=== PATIENT | female | born 1975 | race Caucasian/White ===

== ENCOUNTER → 2016-12-25 10:02 | Outpatient (CLI) | payer BC, MEDICAID, SELFPAY ==
[2016-12-25 14:46] LABS: Hematocrit 39.3 % (37-47); Hemoglobin 13.6 g/dl (12.0-15.0); Mean Corp Hgb Conc 34.6 g/gl (32-36); Mean Corpuscular Hgb 31.3 pg (27.0-32.0); Mean Corpuscular Volume 90.6 fL (81-99); Mean Platelet Vol. 10.1 fl (6.2-12.0); Platelet Count 251 K/mm3 (150-450); RBC Distribution Width CV 13.3 % (11.6-14.6); RBC Distribution Width SD 43.4 fl (35.1-43.9); Red Blood Count 4.34 M/mm3 (4.2-5.4); White Blood Count 10.2 K/mm3 (4.4-11.0)
[2016-12-25 14:49] LABS: Scan Indicated on CBC? Y/N NO
[2016-12-25 15:08] LABS: Pregnancy, Serum, hCG Quali. NEGATIVE Negative (0-9 Nonpreg)
[2016-12-25 15:12] LABS: Thyroid Stim Hormone (TSH) 0.27 uIU/mL (0.358-3.74)
== END ==
PROVIDERS: Visit Provider Obstetrics & Gynecology
DX: Z01.818 Encounter for other preprocedural examination (principal); E07.9 Disorder of thyroid, unspecified
CPT/HCPCS: 36415; 84443; 84703; 85027; 86850; 86900

== ENCOUNTER 2017-07-24 11:55 | Day surgery (SDC) | payer BC, MEDICAID, SELFPAY ==
--- NOTE | 2017-07-24 07:04 | PCM.DC.ORTHO ---
Discharge Activity: Return to Normal Activity, May not drive while taking narcotic pain medications., May Shower, Use Walker, Use Crutches May shower in (days): 2 May resume sexual activity in: No Restrictions Ice area for (Minutes): 20 - Use Polar Care as needed Weight Bearing Status: Weight bearing as tolerated Additional Activity Instructions:: Flex and extend knee ad tiera. Encourage early weightbearing and range of motion. Call your doctor if your incision/area has: Continuous Slow Oozing, Sudden Increased Bleeding, Increased Pain/ Swelling, Increased Redness, Foul Smelling Discharge, Swelling at the incision site Call your doctor if you observe: Fever of 101 or Higher, Coldness, Increased Pain, Numbness or Tingling, Change in Color, Inability to urinate, Inability to have a bowel movement, Using more than one pad per hour, Shortness of breath, Dizziness, Fainting spells, Swelling in the ankles, Chest pain, Prolonged hiccoughing, Increased palpitations (irregular heartbeat), Calf discomfort, Uncontrolled pain Suture Line Care: Avoid Pulling/Pushing, Avoid Pinching/Bending Change Dressing in (Days):: 2 Remove Dressing in (days):: 2 Cleanse incision/area with: Soap & Water Additional Dressing/Incision Instructions:: Move dressing postop day 2. May shower. Do not submerge wound. Replace Toro wrap for gentle compression upon completion. Allergies/Adverse Reactions: Allergies erythromycin base [Erythromycin Base] Adverse Reaction (Verified 07/17/17 08:41) Abd cramps/diarrhea Medications to take at Discharge Thyroid [Freeborn Thyroid] 15 mg PO QODAY 09/03/16 Ascorbic Acid [Vitamin C] 500 mg PO DAILY@0800 12/21/16 Intergal Collagen 1 pack PO DAILY 02/22/17 hydrochlorothiazide 25 mg tablet 25 mg PO QDAY #90 tab 06/22/17 Amlodipine Besylate [Norvasc] 5 mg PO LUNCH 07/17/17 Docusate Sodium [Colace] 100 mg PO BID PRN PRN #10 cap 07/24/17 Oxycodone HCl/Acetaminophen [Percocet 5/325] 1 - 2 tablet PO Q4H PRN PRN #60 tablet 07/24/17 ProMETHAzine [Phenergan] 25 mg PO Q4H PRN PRN #10 tab 07/24/17 The following prescriptions were given: Oxycodone HCl/Acetaminophen [Percocet 5/325] 1 - 2 tablet PO Q4H PRN PRN #60 tablet PRN Reason: Pain ProMETHAzine [Phenergan] 25 mg PO Q4H PRN PRN #10 tab PRN Reason: Nausea Docusate Sodium [Colace] 100 mg PO BID PRN PRN #10 cap PRN Reason: Constipation Primary Care Physician: Palma Betancourt MD [Primary Care Provider] - Please Follow Up With: Cleveland Rivera DO When: call [facility] for appt for 2 weeks Proposed Discharge Date: 07/24/17
[2017-07-24 12:13] VITALS: BP 169/92; PULSE 114; RESP 18; TEMP 36.6; O2SAT 98; BMI 44.4
--- NOTE | 2017-07-24 13:36 | OP.PN_ITS ---
Immediate Post-Op Note Date of Procedure: 07/24/17 Primary Surgeon/Physician: Cleveland Rivera DO communication signals intelligence: none Pre-Operative Diagnosis: Left knee internal derangement, meniscus tear, stress reaction to the distal femur and proximal tibia Post-Operative Diagnosis: Same as above Surgery/Procedure Performed:: Left knee scope, partial synovectomy, micro internal fixation of the femur, chondroplasty of the patella. Description of Surgical Findings:: See dictation Estimated Blood Loss: 10 Specimen's removed: None ASA Class: ASA1 Normal Healthy Patient - Admit VTE Documentation VTE Present on Admission: No VTE Mechan Device Prophylaxis: SCD's VTE Pharm Prophylaxis ordered?: No Reason prophylaxis not ordered:: Treatment Not Indicated
[2017-07-24] MEDS: Cefazolin 2 GM in 0.9% Normal Saline 100 ML IV (13:40)
--- NOTE | 2017-07-24 13:55 | RAD_ITS ---
STUDY: X-RAY - LEFT KNEE REASON FOR EXAM: Female, 41 years old. Left knee surgery. TECHNIQUE: 3 view(s) of the knee. Intraoperative fluoroscopy COMPARISON: None. FINDINGS: 3 views of the left knee via intraoperative fluoroscopy demonstrates postsurgical change of the medial compartment without definitive hardware failure or loosening. Please see surgical report for full details RAD/Knee 1 or 2 Views IMPRESSION: As above Electronically Signed: Ernie Kumar DO at 15:12 EST Tel , Service support ,
[2017-07-24] MEDS: Bupivacaine 0.25% 30 ML Vial (14:45)
[2017-07-24 15:09] VITALS: BP 152/85; BP 169/92; PULSE 122; RESP 18; TEMP 36.5; O2SAT 93
[2017-07-24 15:15] VITALS: BP 147/84; BP 169/92; PULSE 108; RESP 16; O2SAT 92
[2017-07-24 15:30] VITALS: BP 143/90; BP 169/92; PULSE 107; RESP 16; O2SAT 93
[2017-07-24 15:41] VITALS: BP 157/96; BP 169/92; PULSE 103; RESP 16; TEMP 36.7; O2SAT 94
[2017-07-24] MEDS: oxyCODONE 5 MG Tablet 10 MG PO (16:16)
[2017-07-24 16:55] VITALS: BP 169/92
--- NOTE | 2017-07-25 08:05 | OP.PCM_ITS ---
Report of Operation Date of Procedure: 07/24/17 Pre-Operative Diagnosis: Left knee internal derangement, meniscus tear, stress reaction to the distal femur and proximal tibia Post-Operative Diagnosis: Same as above Surgery/Procedure Performed:: Left knee scope, partial synovectomy, micro internal fixation of the femur, chondroplasty of the patella. Description of Surgical Findings:: 41-year-old female with recalcitrant left knee pain that failed nonoperative management to include NSAIDs and modifications physical therapy and injections. Patient had an MRI that showed her to have possible tear to the posterior horn of the medial meniscus with thinning of the cartilage and subchondral edema to the medial femoral condyle and slightly across the medial tibial plateau. Patient showed small amount of extrusion of meniscus. I did not appreciate any formal root tear. Patient showed chondromalacia of the patellofemoral joint and a large effusion. Having failed conservative measures my recommendation was for a diagnostic knee scope possible meniscus repair versus debridement micro internal fixation of the medial femoral condyle and possible medial tibial plateau chondroplasty as warranted and synovectomy as needed secondary to a large recurrent effusion. Patient agreed to the aforementioned procedure. She has been in the holding area where the left lower extremity was marked and identified by the with surgeon. Patient was taken the operating room in satisfactory condition with somewhat to place to identify patient operative procedure and limb. Patient received 2 g of Ancef. She had a well-placed tourniquet left proximal thigh she was then prepped and draped in usual fashion. Left lower extremity was elevated Esmarch used for exsanguination and tourniquet was increased to 250 mmHg for roughly 47 minutes. Anterolateral portal was established and we entered the suprasellar pouch with a small return effusion. Superior lateral outflow portal was established. Diagnostic scope to the patient have really marked synovitis globally around the knee. 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 Her posterior lateral corner showed no obvious loose bodies with some mild synovitis as expected. We then moved in the medial side patient had a large medial shelf plical formation and synovial flap across the trochlea. We slid underneath that and performed a anteromedial portal. I then performed a partial to subtotal synovectomy around the joint using mechanical shaver and vapor to help control any excess bleeding. We performed a chondroplasty of the central ridge of the patella to a stable rim. Overall dimensions was roughly 1 cm medial to lateral 1.5 cm from superior to inferior pole. Evaluation the medial compartment showed the patient really have a flattened compressed area which is some of the area with the subchondral edema was identified in the medial femoral condyle. She also had marked areas of grade 2 to grade III chondromalacia at about 45-50? of knee flexion. The medial tibial plateau grade showed grade II chondromalacia. The overall continuity the meniscus was preserved. I cannot appreciate any instability to the meniscus at the root or identify any anne tear patterns with probing. The meniscus was that point time left alone. Small chondroplasty was performed to the loose areas of the cartilage to the medial femoral condyle. ACL was otherwise within normal limits. However the patient was showing early stenotic changes with osteophytic changes around the notch of roughly 2 mm. No obvious extension loss was appreciated this point. Lateral compartment showed grade II chondromalacia of the tibial plateau with the meniscus was pristine. The lateral femoral condyle showed no chondromalacia changes through full range of motion. At that point time using C-arm visualization a trocar was entered from the medial aspect of the femoral condyle found to be in close proximity to the area of compression across the condyle with subchondral edema was identified. Trocar was then introduced again confirming appropriate position AP and lateral planes with C-arm. We then introduced roughly 2 cc of calcium phosphate cement into the condyle with direct observation the trocar to be sure there was not extrusion of the material. This was allowed to set up accordingly for roughly 8 minutes at time. Trocar was then removed. The joint was run one additional time to ensure there was not any loose fragments. We had none. At that point time scope was retracted and the portal sites are closed with 3-0 nylon. Patient was injected with 30 cc of 0.25% Marcaine without epinephrine intra-articularly and around the portal sites. She was then placed a compressive dressing to include Xeroform 4 x 4's Kerlix roll ABD and Toro wrap. I was scrubbed and available time during our procedure. We had no drains or comp occasions. Implants included the calcium phosphate cement from [employer]. Any issues please contact me. financial aid officer: none Type of Anesthesia:: General Specimen's removed: None Estimated Blood Loss (mL): 10 Grafts/Implants Used: Calcium phosphate cement - Complications None - Admit VTE Documentation VTE Present on Admission: No VTE Mechan Device Prophylaxis: SCD's, Knee High MARCELLUS Hose VTE Pharm Prophylaxis ordered?: No Reason prophylaxis not ordered:: Treatment Not Indicated
== END 2017-07-24 16:57 | disposition home or self-care (01) ==
LOC: SDC 11:56 → AC 11:57
PROVIDERS: Family Provider Internal Medicine; PCP Internal Medicine; Visit Provider Orthopaedic Surgery
PROC: 3E0U3GB Introduction of Recombinant Bone Morphogenetic Protein into Joints, Percutaneous Approach (ICD-10-PCS; CPT 0707T; principal; 2017-07-24 13:35)
DX: M84.362A Stress fracture, left tibia, initial encounter for fracture (principal); M84.352A Stress fracture, left femur, initial encounter for fracture; M22.42 Chondromalacia patellae, left knee; X58.XXXA Exposure to other specified factors, initial encounter; Y93.9 Activity, unspecified; Y92.9 Unspecified place or not applicable; I10 Essential (primary) hypertension; Z79.899 Other long term (current) drug therapy; R00.0 Tachycardia, unspecified; E03.9 Hypothyroidism, unspecified
CPT/HCPCS: 01400; 29855; 29877; 73560; 76000; J7120; J2405

== ENCOUNTER → 2017-09-04 14:49 | Outpatient (CLI) | payer BC, MEDICAID, SELFPAY ==
[2017-09-04 19:52] LABS: T4 Free Direct 0.94 ng/dL (0.76-1.46)
== END ==
PROVIDERS: Family Provider Internal Medicine; PCP Internal Medicine; Visit Provider Nurse Practitioner Family
DX: E03.9 Hypothyroidism, unspecified (principal)
CPT/HCPCS: 36415; 84439; 84443

== ENCOUNTER → 2017-09-21 15:49 | Outpatient (CLI) | payer BC, MEDICAID, SELFPAY ==
[2017-09-21 18:09] LABS: ALB/GLOB Ratio 1.1 RATIO (0.9-2.4); AST(SGOT) 66 U/L (15-37); Alanine Aminotransfer ALT/SGPT 79 U/L (13-56); Alkaline Phosphatase 97 U/L (45-117); Anion Gap 11 (5-15); BUN 7 mg/dL (7-18); BUN/Creat Ratio 9.2 RATIO (10-20); Calcium,Total 8.6 mg/dL (8.5-10.1); Chloride 96 mmol/L (98-107); Creatinine, Serum 0.76 mg/dL (0.55-1.02); EST Glomerular Filtration Rate 88 mL/min (>60); Est Glom Filt Rate - Afr Amer 107 mL/min (>60); Globulin 3.5 g/dL (2.2-4.2); Glucose 324 mg/dL (74-106); Potassium 3.5 mmol/L (3.5-5.1); Protein, Total 7.5 g/dL (6.4-8.2); Sodium Level 133 mmol/L (136-145)
[2017-09-21 18:11] LABS: Vitamin D,25 Hydroxy 12.6 ng/mL (29.95-100.01)
[2017-09-21 18:34] LABS: Absolute Lymphocyte Count 2.18 X10^3/ul (0.83-4.51); Absolute Neutrophil Count 5.1 X10^3/uL (2.0-7.7); Basophil# 0.03 X10^3/uL; Basophil% 0.4 % (0-1); Eosinophil# 0.06 X10^3/uL; Eosinophils% 0.8 % (0-5); Hematocrit 43.6 % (37-47); Hemoglobin 15.2 g/dl (12.0-15.0); Lymphocyte # 2.18 X10^3/ul (4.0); Lymphocyte % 27.7 % (19-41); Mean Corp Hgb Conc 34.9 g/gl (32-36); Mean Corpuscular Hgb 30.8 pg (27.0-32.0); Mean Corpuscular Volume 88.4 fL (81-99); Mean Platelet Vol. 10.9 fl (6.2-12.0); Monocyte% 6.4 % (0-10); Neutrophil # 5.09 X10^3/uL (2.7-7.7); Neutrophil % 64.6 % (47-70); Platelet Count 263 K/mm3 (150-450); RBC Distribution Width CV 12.6 % (11.6-14.6); RBC Distribution Width SD 40.2 fl (35.1-43.9); Red Blood Count 4.93 M/mm3 (4.2-5.4); White Blood Count 7.9 K/mm3 (4.4-11.0)
[2017-09-21 18:36] LABS: POSITIVE COUNT NO; POSITIVE DIFFERENTIAL NO; POSITIVE MORPHOLOGY NO
[2017-09-21 18:38] LABS: Hemoglobin A1c 9.8 % (4.2-6.3)
== END ==
PROVIDERS: Family Provider Internal Medicine; PCP Internal Medicine; Visit Provider Internal Medicine
DX: E11.9 Type 2 diabetes mellitus without complications (principal); E03.9 Hypothyroidism, unspecified
CPT/HCPCS: 36415; 80053; 82306; 83036; 85025

== ENCOUNTER 2017-10-04 14:00 | Outpatient (RCR) | payer BC, MEDICAID, SELFPAY ==
--- NOTE | 2017-08-09 15:29 | HP.PTEVAL_ITS ---
Patient's Visit Information DELFINA BARBOSA is a 41 year old F referred to Physical Therapy by Cleveland Rivera DO DR.MTFRED with a diagnosis of LEFT KNEE SCOPE ,MICROINTERNAL FUNCTION ,C. Date of Evaluation: 08/09/17 Physical Therapist: John Paul Edgar PT, - Visit Plan Frequency: 2-3x /Week Duration: 6-12WEEKS Plan: intilally ROM ,PRE 'S QUADS/HAMS/HIPOPEN/CLOSED CHAIN PROGRESS SLOWLY - AVOID KNEE EXT,GAIT ,AND PROPRIOCEPTION. MODALITIES -/CPVASO FOR EDEMA - Subjective Subjective: This patient presents to physical thwerapy with left knee scope , microinternal fixation fixation [facility] [place]. Patient has had knee since last year with pain and edema. Seen Dr Rivera recommended PT ,got better. Then pain return with waorking at home remodling ,causing swellinf,stifffness. MRI showed meniscus tear ,bone weakness. Thus underwent arthroscpoic ,patial synovectomy , microinternal fixation of femus,chondroplasty of patella on Jul 24 at [facility] as outpatient. Patient is WBAT with crutches.Patient unable to squat,kneeling, stairs one step at time,extended standing. Patient has iceman at home for edema. Patient has edema worse as day goes on. Patient sleeping okay . Denies parathesia tingling.Patient knee surgery affects quality of life and unable housework tasks. SOCIAL: . 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 NEURO: intact reflexes normal , denies parathesia. GAIT: ambulates with crutches with WBAT with slight decrease stance with swing phase. reciprocal pattern. PROPRIOCEPTION: poor left. STAIRS: asend/descend 4 steps on step at time. EDEMA: joint line 54 cm. AROM : left knee flexion 20 -85 degrees. MMT: QUADS 3+/5,HAMS 4-/5,HIP FLEXION 4-/5,HIP EXT/ABD 3+/5,ANKLE 4/5. FLEXABLITY: hams min loss - Goals Goal 1:: Independant with HEP Goal Time Frame: 6-8 Weeks Goal 2:: Ambulate with improve gait reciprocal pattern normal janette swing phase Goal Time Frame: 6-8 Weeks Goal 3:: Patient improve AROM supine knee flexion 5-120 degrees to improve stairs Goal Time Frame: 6-8 Weeks Goal 4:: Patient increase strength of quads/hams 4/5 to improve function. Goal Time Frame: 6-8 Weeks Goal 5:: Patient to improve ablity with ADL'S and housework tasks with min limiations Goal Time Frame: 6-8 Weeks Goal 6:: Patient able to ascend/descend 12 steps with rail alternate Goal Time Frame: 6-8 Weeks - Rehabilitation Potential Physical Therapy Diagnosis: This patient underwent s/p left scope , microinternal fixation ,MFC. Patient has decrease ROM ,strength impairs gait, stairs and ADLS /housework tasks austin carmona from skilled PT Rehabilitation Potential: Good - Anticipated Interventions Patient/Client Instruction: Educate patient on: Condition, Plan of Care For the Purpose of:: To decrease pain, To increase ROM, To improve muscle performance and motor function, To improve ability to perform ADL's, To increase tolerance to activity/condition/position, To improve ability of physical actions for home/community/work/leisure, To improve health of tissue, To decrease soft tissue restriction, To increase flexibility/ROM, To reduce risk of recurrence, To improve health and function, To improve ability to perform tasks related to life management Therapeutic Exercise to Include: Strength training, Balance training, Flexibilty training, Passive ROM, Active ROM Comment: QUADS/HAMS -AVOID KNEE EXT For the Purpose of:: To decrease pain, To increase ROM, To improve muscle performance and motor function, To improve ability to perform ADL's, To increase tolerance to activity/condition/position, To improve performance and independence with ADL's, To improve ability of physical actions for home/ community/work/leisure, To improve gait and locomotor functions, To improve health of tissue, To decrease soft tissue restriction, To increase flexibility/ ROM, To improve ability to perform tasks related to life management IF ES: Yes Cryotherapy (ice pack, ice massage): Yes Thermo therapy (hot pack): Yes Ultrasound (thermal/non thermal): Yes Vasopneumatic device: Yes For the Purpose of:: To decrease pain, To decrease swelling/inflammation, To increase ROM, To improve nutrient delivery to tissue, To increase oxygenation perfusion, To improve health of tissue, To decrease soft tissue restriction, To increase flexibility/ROM Thank you for the opportunity to evaluate your patient. For Medicare and Medicare HMO plans, please review the plan of care and approve it. It will need to be FAXED BACK to us at [phone] for Medicare purposes. Please let me know if there are questions or concerns regarding this plan of care. Physician Signature: Date:
--- NOTE | 2017-10-04 14:24 | HP.PTDCSUM ---
HP - PT D/C Summary It has been my pleasure to treat DELFINA BARBOSA under orders from Cleveland Rivera DO, for the diagnosis of LEFT KNEE SCOPE ,MICROINTERNAL FIXATION ,[facility] total of 15 visit(s). Discharge Date: 10/04/17 Please see the following information for a summary of their discharge status. - Subjective Subjective: Doing good. Able to asecend/desend steps alteranting. Modified squatiing okay.Walking on unevent traine. No pain. Able to do all housework tasks and ADL'S without difficulty - Pain Left Knee Pain Intensity (Out of 10): 0 - Overall Improvement % Improvement: 90 - Objective Objective/Function: POSTURE: WFL. GAIT: ambulates with normal janette. AROM: 0-125 degrees supine knee flexion. MMT: 4/5 quads/hams/hip ,ankle 5/5 - Goals Goal 1:: Independant with HEP Goal Progress: Goal Met Goal 2:: Ambulate with improve gait reciprocal pattern normal janette swing phase Goal Progress: Goal Met Goal 3:: Patient improve AROM supine knee flexion 5-120 degrees to improve stairs Goal Progress: Goal Met Goal 4:: Patient increase strength of quads/hams 4/5 to improve function. Goal Progress: Goal Met Goal 5:: Patient to improve ablity with ADL'S and housework tasks with min limiations Goal Progress: Goal Met Goal 6:: Patient able to ascend/descend 12 steps with rail alternate Goal Progress: Goal Met - Plan Plan: d/c to HEP - D/C Information Discharge Comments: [facility] If there are questions or concerns regarding this patient's physical therapy, please feel free to call me at [phone]. Thank you for the referral of this patient. Sincerely, John Paul Edgar, PT,
== END 2017-10-04 19:00 | disposition home or self-care (01) ==
LOC: PT 14:00
PROVIDERS: Family Provider Internal Medicine; PCP Internal Medicine; Visit Provider Orthopaedic Surgery
DX: Z98.890 Other specified postprocedural states (principal)
CPT/HCPCS: 97014; 97016; 97110; 97162; G0283

== ENCOUNTER → 2018-01-22 09:33 | Outpatient (CLI) | payer MEDICAID, SELFPAY ==
[2018-01-22 10:46] LABS: Hemoglobin A1c 5.3 % (4.2-6.3)
[2018-01-22 11:01] LABS: Microalbumin,Random Urine 85.3 mg/L (NO RANGE EST.); Microalbumin:Creatinine Ratio 25.2 mg/g CRE (<30 mg/g CRE)
== END ==
PROVIDERS: Family Provider Internal Medicine; PCP Internal Medicine; Visit Provider Internal Medicine
DX: E11.9 Type 2 diabetes mellitus without complications (principal)
CPT/HCPCS: 36415; 82043; 82570; 83036

== ENCOUNTER → 2018-03-29 15:09 | Outpatient (CLI) | payer MEDICAID, SELFPAY ==
[2018-03-29 16:18] LABS: Absolute Lymphocyte Count 1.49 X10^3/ul (0.83-4.51); Absolute Neutrophil Count 5.8 X10^3/uL (2.0-7.7); Basophil# 0.03 X10^3/uL; Basophil% 0.4 % (0-1); Eosinophil# 0.09 X10^3/uL; Eosinophils% 1.1 % (0-5); Hemoglobin 14.8 g/dl (12.0-15.0); Lymphocyte # 1.49 X10^3/ul (4.0); Lymphocyte % 18.9 % (19-41); Mean Corp Hgb Conc 33.6 g/gl (32-36); Mean Corpuscular Hgb 30.5 pg (27.0-32.0); Mean Corpuscular Volume 90.7 fL (81-99); Mean Platelet Vol. 10.1 fl (6.2-12.0); Monocyte# 0.47 X10^3/uL; Neutrophil # 5.78 X10^3/uL (2.7-7.7); Neutrophil % 73.5 % (47-70); Platelet Count 262 K/mm3 (150-450); RBC Distribution Width CV 12.8 % (11.6-14.6); RBC Distribution Width SD 41.9 fl (35.1-43.9); Red Blood Count 4.85 M/mm3 (4.2-5.4); White Blood Count 7.9 K/mm3 (4.4-11.0)
[2018-03-29 16:20] LABS: POSITIVE COUNT NO; POSITIVE DIFFERENTIAL NO; POSITIVE MORPHOLOGY NO
== END ==
PROVIDERS: Family Provider Internal Medicine; PCP Internal Medicine; Referring Provider Nurse Practitioner Family; Visit Provider Nurse Practitioner Family
DX: K62.5 Hemorrhage of anus and rectum (principal); K64.9 Unspecified hemorrhoids
CPT/HCPCS: 36415; 85025

== ENCOUNTER → 2018-04-03 16:32 | Outpatient (CLI) | payer MEDICAID, SELFPAY | PROVIDERS: Family Provider Internal Medicine; PCP Internal Medicine; Referring Provider Nurse Practitioner Family; Visit Provider Nurse Practitioner Family | DX: K62.5 Hemorrhage of anus and rectum (principal); K64.9 Unspecified hemorrhoids | CPT/HCPCS: 82274 ==

== ENCOUNTER → 2018-04-04 14:39 | Outpatient (CLI) | payer MEDICAID, SELFPAY | PROVIDERS: Family Provider Internal Medicine; PCP Internal Medicine; Referring Provider Nurse Practitioner Family; Visit Provider Nurse Practitioner Family | DX: K62.5 Hemorrhage of anus and rectum (principal); K64.9 Unspecified hemorrhoids | CPT/HCPCS: 82274 ==

== ENCOUNTER → 2018-04-05 12:11 | Outpatient (CLI) | payer MEDICAID, SELFPAY | PROVIDERS: Family Provider Internal Medicine; PCP Internal Medicine; Referring Provider Nurse Practitioner Family; Visit Provider Nurse Practitioner Family | DX: K62.5 Hemorrhage of anus and rectum (principal); K64.9 Unspecified hemorrhoids | CPT/HCPCS: 82274 ==

== ENCOUNTER → 2018-05-30 08:21 | Outpatient (CLI) | payer MEDICAID, SELFPAY ==
[2018-04-11 13:27] VITALS: BMI 38.0
[2018-05-30 10:16] LABS: Cholesterol 137 mg/dL (200); High Density Lipoprotein 39 mg/dL; Triglycerides 137 mg/dL; Very Low Density Lipoprotein 27 mg/dL (5-40)
[2018-05-30 10:19] LABS: Hemoglobin A1c 5.7 % (4.2-6.3)
== END ==
PROVIDERS: Family Provider Internal Medicine; PCP Internal Medicine; Referring Provider Internal Medicine; Visit Provider Internal Medicine
DX: E11.9 Type 2 diabetes mellitus without complications (principal); I10 Essential (primary) hypertension
CPT/HCPCS: 36415; 80061; 83036

== ENCOUNTER → 2018-12-02 | Outpatient (CLI) | payer MEDICAID, SELFPAY ==
[2018-06-06 16:30] VITALS: BMI 38.0
[2018-12-02 11:29] LABS: Anion Gap 2 (5-15); BUN 10 mg/dL (7-18); BUN/Creat Ratio 12.2 RATIO (10-20); Chloride 106 mmol/L (98-107); Creatinine, Serum 0.82 mg/dL (0.55-1.02); EST Glomerular Filtration Rate 81 mL/min (>60); Est Glom Filt Rate - Afr Amer 97 mL/min (>60); Glucose 162 mg/dL (74-106); Potassium 4.2 mmol/L (3.5-5.1); Sodium Level 138 mmol/L (136-145); T4 Free Direct 0.93 ng/dL (0.76-1.46); Thyroid Stim Hormone (TSH) 0.62 uIU/mL (0.358-3.74)
== END | disposition home or self-care (01) ==
LOC: LAB 10:32
PROVIDERS: Family Provider Internal Medicine; PCP Internal Medicine; Referring Provider Internal Medicine; Visit Provider Internal Medicine
DX: E11.9 Type 2 diabetes mellitus without complications (principal); E03.9 Hypothyroidism, unspecified
CPT/HCPCS: 36415; 80048; 83036; 84439; 84443

== ENCOUNTER → 2018-12-13 | Outpatient (CLI) | payer MEDICAID, SELFPAY ==
[2018-12-05 14:47] VITALS: BMI 38.0
--- NOTE | 2018-12-13 15:19 | BI_ITS ---
MAMMOGRAPHY - BILATERAL SCREENING 3-D TOMOSYNTHESIS REASON FOR EXAM: Female, 42 years old. Bilateral Screening 3-D tomosynthesis PERTINENT HISTORY: No significant family history. TECHNIQUE: 2-D mammograms and 3-D Tomosynthesis of the breast (s) were performed. CAD was performed. COMPARISON: None. FINDINGS: The breast composition is heterogeneously dense that can obscure small breast masses. Scattered benign calcifications are seen. No dense spiculated masses or suspicious microcalcifications are identified. No architectural distortion is identified. There is no skin thickening or retraction. BI/SCREEN MAMM (CAD) W/CANDELARIO BILAT IMPRESSION: No mammographic signs of malignancy. Routine yearly mammograms recommended. ASSESSMENT CATEGORY: BIRADS Category 1: Negative. A letter regarding these results will be sent to the patient by the facility within 30 days. FOLLOW UP RECOMMENDATION: Yearly follow up mammogram recommended. (A) Approximately 10% of breast cancers are not detected by mammography. A normal mammogram should not delay biopsy of a clinically suspicious abnormality. Electronically Signed: Luis Alberto Akins MD at 8:12 EDT , Service support ,
== END | disposition home or self-care (01) ==
LOC: OPBI 15:18
PROVIDERS: Family Provider Internal Medicine; PCP Internal Medicine; Referring Provider Internal Medicine; Visit Provider Internal Medicine
DX: Z12.31 Encounter for screening mammogram for malignant neoplasm of breast (principal)
CPT/HCPCS: 77063; 77067

== ENCOUNTER → 2019-06-19 13:14 | Outpatient (CLI) | payer MEDICAID, SELFPAY ==
[2018-12-05 14:47] VITALS: BMI 38.0
--- NOTE | 2019-06-19 13:22 | CT_ITS ---
STUDY: CT MAXILLOFACIAL SINUSES REASON FOR EXAM: Female, 43 years old. CHRONIC SINUTISIS. Pus draining from sinus x months RADIATION DOSAGE (If Supplied By Facility): CTDIvol = ( 33.45 ) mGy, DLP = ( 759.64 ) mGycm TECHNIQUE: The patient was scanned in a multi detector CT scanner. High resolution axial imaging was performed without the administration of intravenous contrast material. Sagittal and coronal images were reconstructed. Individualized dose optimization techniques were used for this CT. COMPARISON: None. FINDINGS: FRONTAL SINUSES: Normal aeration, without mucosal inflammatory disease. ETHMOIDAL SINUSES: Normal aeration, without mucosal inflammatory disease. MAXILLARY SINUSES: Normal aeration, without mucosal inflammatory disease. SPHENOIDAL SINUSES: Normal aeration, without mucosal inflammatory disease. There is patency of the bilateral maxillary infundibuli with normal uncinate processes, ethmoid bullae, and hiatus semilunaris. Normal bilateral middle turbinates. Normal bilateral inferior turbinates. Normal midline nasal septum. There is patency of the bilateral nasal airways. The visualized osseous structures are normal. The visualized bilateral orbital contents are normal. CT/Sinus/Facial Bone IMPRESSION: Normal CT examination of the maxillofacial sinuses. Electronically Signed: Unruly Anne MD at 16:08 EST Tel , Service support ,
== END ==
PROVIDERS: PCP Internal Medicine; Referring Provider Otolaryngology; Visit Provider Otolaryngology
DX: J32.9 Chronic sinusitis, unspecified (principal)
CPT/HCPCS: 70486

== ENCOUNTER → 2020-04-29 15:11 | Outpatient (CLI) | payer MEDICAID, SELFPAY ==
[2018-12-05 14:47] VITALS: BMI 38.0
== END ==
PROVIDERS: PCP Internal Medicine; Referring Provider Otolaryngology; Visit Provider Otolaryngology
DX: J02.9 Acute pharyngitis, unspecified (principal)
CPT/HCPCS: 87070; 87077; 87186

== ENCOUNTER → 2020-05-24 | Outpatient (CLI) | payer MEDICAID, SELFPAY ==
[2018-12-05 14:47] VITALS: BMI 38.0
== END | disposition home or self-care (01) ==
LOC: LABSPEC 15:51
PROVIDERS: PCP Internal Medicine; Referring Provider Otolaryngology; Visit Provider Otolaryngology
DX: J02.9 Acute pharyngitis, unspecified (principal)
CPT/HCPCS: 87070

== ENCOUNTER 2020-08-09 04:03 | Observation (INO) | payer MEDICAID, SELFPAY ==
[2018-12-05 14:47] VITALS: BMI 38.0
[2020-08-09] VITALS (10 sets, daily range): BP systolic 154–204; BP diastolic 62–114; PULSE 75–105; RESP 15–20; TEMP 36.5–37; O2SAT 93–100; BMI 42.5; BMI 41.5; BMI 41.6
[2020-08-09 04:24] LABS: Absolute Lymphocyte Count 2.32 X10^3/uL (0.83-4.51); Basophil# 0.06 X10^3/uL; Basophil% 0.5 % (0-1); Eosinophil# 0.05 X10^3/uL; Eosinophils% 0.4 % (0-5); Hematocrit 48.6 % (37-47); Hemoglobin 16.7 g/dL (12.0-15.0); Lymphocyte # 2.32 X10^3/ul (4.0); Lymphocyte % 19.1 % (19-41); Mean Corp Hgb Conc 34.4 g/dL (32-36); Mean Corpuscular Hgb 30.9 pg (27.0-32.0); Mean Platelet Vol. 10.3 fl (6.2-12.0); Monocyte# 0.62 X10^3/uL; Monocyte% 5.1 % (0-10); NRBC Flagged by Analyzer 0 % (0-5); Neutrophil # 9.04 X10^3/uL (2.7-7.7); Neutrophil % 74.6 % (47-70); Platelet Count 292 K/mm3 (150-450); RBC Distribution Width CV 12.2 % (11.6-14.6); RBC Distribution Width SD 40.3 fl (35.1-43.9); White Blood Count 12.1 K/mm3 (4.4-11.0)
[2020-08-09] MEDS: Ketorolac 15 MG/ML Vial IV (04:29)
[2020-08-09] MEDS: Ondansetron 4 MG/2 ML Vial IV (04:29)
[2020-08-09] MEDS: 0.9% Normal Saline 1,000 ML 125 ML IV ×3 (04:29→21:04)
--- NOTE | 2020-08-09 04:31 | ED.VIS.GI ---
History of Present Illness Chief Complaint: Abd Pain Narrative: Patient presenting for evaluation secondary to abdominal pain. Patient reports that about 4 hours ago she had a sudden onset of abdominal pain. She reports that it is epigastric and right upper quadrant directly below her breast. She states that there is some radiation to between her shoulder blades. This been a continuous pain that is been associated with nausea, no vomiting. She denies any diarrhea. She does have some generalized malaise. Pain seems to be worse with palpation and change in position. Patient reports that she feels she has had some bouts of this in the past, but none have ever lasted this long. Patient does have a history of some abdominal surgeries, mainly pelvic associated with a inguinal hernia as a baby, sections, and a uterine ablation and salpingectomy. Patient states that she has an underlying history of hypertension and type 2 diabetes but is currently unmedicated for this. She denies any chest pain or shortness of breath. Review of systems otherwise negative. Past Medical History - Allergies and Home Meds Allergies/Adverse Reactions: Allergies exenatide [From Bydureon] Allergy (Unknown, Verified 08/09/20 04:09) Site sore, bump under skin doxycycline Adverse Reaction (Verified 08/09/20 04:09) Hives erythromycin base [Erythromycin Base] Adverse Reaction (Verified 08/09/20 04:09) Abd cramps/diarrhea Primary Care Physician: Palma Betancourt MD [Primary Care Provider] - Prior records reviewed: Yes Past Medical History: - - Hypertension, type 2 diabetes Surgical History: - - section, hernia surgery, uterine ablation and salpingectomy. Lives: Spouse/ Significant Other Smoking Status: Never smoker Alcohol: None Drugs: None Review of Systems All systems negative except as indicated General: Reports: Malaise Eyes: Denies: Visual changes - bilaterally, Diplopia ENT: Denies: Rhinorrhea, Sore throat Cardiovascular: Denies: Chest pain, Palpitations Respiratory: Denies: Dyspnea, Cough, Dyspnea on exertion Gastrointestinal: Reports: Abdominal pain, Nausea. Denies: Vomiting, Diarrhea Genitourinary: Denies: Dysuria Musculoskeletal: Denies: Back pain, Extremity Pain Skin: Denies: Rash, Wounds Neurological: Denies: Headache, Weakness, Numbness Physical Exam Vital Signs/Narrative: Vital Signs Temp Pulse Resp BP Pulse Ox 08/09/20 04:06 98.6 F 105 H 18 204/114 H 97 08/09/20 04:04 98.6 F 105 H 18 204/114 H 97 Inital Vital Signs reviewed: Yes General: Well nourished, Well developed, Obese, No Acute Distress Head: Normocephalic, Atraumatic Eyes: Perrl, EOMI ENT: Moist mucous membranes, No rhinorrhea Neck: Supple, Nontender Cardiovascular: Regular rate, Regular rhythm, No murmurs Respiratory: No distress, CTA bilaterally, Chest nontender Abdomen: Tender - Epigastric and right upper quadrant, no guarding or rebound tenderness. Negative Castaneda sign. Back: Nontender, Normal Inspection Extremities: Nontender, No edema Skin: Normal color, No rash Neurological: Alert, Oriented x3, Cranial nerves II-XII grossly intact, Normal Strength, Normal Sensation Psychological: Normal affect, Normal Mood Diagnostic/Tx/Re-eval US: - - Bedside ultrasound demonstrates a dilated gallbladder with a wall measuring 4.8 and 5 mm on the anterior portion with pericholecystic fluid and multiple small gallstones. Was unable to identify the common bile duct Laboratory Data 08/09/20 08/09/20 04:05 04:05 WBC 12.1 H RBC 5.40 Hgb 16.7 H Hct 48.6 H MCV 90.0 MCH 30.9 MCHC 34.4 RDW Std Deviation 40.3 RDW Coeff of Iesha 12.2 Plt Count 292 MPV 10.3 Immature Gran % (Auto) 0.300 Neut % (Auto) 74.6 H Lymph % (Auto) 19.1 Todd % (Auto) 5.1 Eos % (Auto) 0.4 Baso % (Auto) 0.5 Absolute Neuts (auto) 9.0 H Absolute Lymphs (auto) 2.32 Nucleated RBC % 0 Sodium 134 L Potassium 3.7 Chloride 98 Carbon Dioxide 28.0 Anion Gap 8 BUN 12 Creatinine 0.87 Estim Creat Clear Calc 91.27 Est GFR (MDRD) Af Amer 90 Est GFR (MDRD) Non-Af 74 BUN/Creatinine Ratio 13.8 Glucose 361 H Calcium 9.9 Total Bilirubin 1.00 AST 41 H ALT 85 H Alkaline Phosphatase 118 H Total Protein 8.0 Albumin 4.0 Globulin 4.0 Albumin/Globulin Ratio 1.0 Lipase 156 - Medical Decision Making Patient presented with epigastric and right upper quadrant abdominal pain with radiation between the shoulder blades concerning for the possibility of acute cholecystitis. Bedside ultrasound on the patient showed gallstones, gallbladder wall thickening, as well as pericholecystic fluid with positive sonographic Castaneda sign. Patient's lab work shows a leukocytosis of 12,000 and a modest elevation of her AST ALT and alkaline phosphatase, lipase was normal. Patient was given Toradol and Zofran and fluids in the emergency department, she continues to have pain but had modest improvement on repeat evaluation at 510. This point I believe the patient likely has acute calculus cholecystitis. I discussed patient's case on the telephone with on-call surgery, Dr. Farnsworth who did agree to admit the patient pending formal ultrasound. Patient was given subcutaneous insulin due to her blood sugar being 300. Patient's blood pressures were noted to be elevated but she reports a severe history of whitecoat syndrome and she has no chest pain or shortness of breath or signs of endorgan damage, this will continue to be monitored. ED Disposition - Plan for ED Patient: Disposition: [facility] Diagnosis: Acute cholecystitis due to biliary calculus
[2020-08-09 04:39] LABS: AST(SGOT) 41 U/L (15-37); Alanine Aminotransfer ALT/SGPT 85 U/L (13-56); Alkaline Phosphatase 118 U/L (45-117); Anion Gap 8 (5-15); BUN 12 mg/dL (7-18); BUN/Creat Ratio 13.8 RATIO (10-20); Calcium,Total 9.9 mg/dL (8.5-10.1); Chloride 98 mmol/L (98-107); Creatinine, Serum 0.87 mg/dL (0.55-1.02); EST Glomerular Filtration Rate 74 mL/min (>60); Est Glom Filt Rate - Afr Amer 90 mL/min (>60); Estimated Creatinine Clearance 91.27 ml/min; Glucose 361 mg/dL (74-106); Lipase 156 U/L (73-393); Potassium 3.7 mmol/L (3.5-5.1); Sodium Level 134 mmol/L (136-145)
--- NOTE | 2020-08-09 05:07 | US_ITS ---
STUDY: ABDOMINAL ULTRASOUND - RIGHT UPPER QUADRANT REASON FOR VISIT: Female, 44 years old Cholecystitis . Epigastric pain. TECHNIQUE: Ultrasound evaluation of the right upper quadrant was performed with real-time and static zhao-scale imaging. TECHNICAL QUALITY: Adequate. COMPARISON: None. FINDINGS: Liver: The liver is enlarged and measures 19.8 cm. There is increased echogenicity consistent with fatty infiltration. The bile ducts are within normal limits. There is hepatic color flow. The direction of portal flow is hepatopetal. There is no demonstrated mass lesion. Gallbladder: There is a distended gallbladder. The gallbladder wall is thickened and measures 6 mm. There is a negative sonographic Castaneda''s sign. There is mild pericholecystic fluid. There are multiple echogenic structures within the gallbladder, consistent with multiple gallstones. Common Bile Duct (C.B.D.): The common bile duct measures 4 mm. Pancreas: Normal size of the head, body and tail of the pancreas. There is normal echogenicity of the pancreas. There is no demonstrated pancreatic mass or cyst. Right Kidney: Normal size of the right kidney. The right kidney measures 14.3 cm x 7.5 cm x 5.4 cm. Normal renal cortex. The right cortex measures 2 cm. There is no demonstrated renal mass or cyst. There is no right hydronephrosis. US/Gallbladder IMPRESSION: Mildly distended gallbladder with thickened wall. Minimal pericholecystic fluid. Multiple gallstones. Mild hepatomegaly and fatty infiltration of the liver. Electronically Signed: Silvino Magallanes MD at 8:37 EDT , Service support ,
--- NOTE | 2020-08-09 05:13 | EKG12_ITS ---
Test Reason : DYSRYTHMIA Blood Pressure : / mmHG Vent. Rate : 077 BPM Atrial Rate : 077 BPM P-R Int : 170 ms QRS Dur : 084 ms QT Int : 396 ms P-R-T Axes : 037 001 015 degrees QTc Int : 448 ms Normal sinus rhythm Minimal voltage criteria for LVH, may be normal variant Borderline ECG Confirmed by KRISTIN QUINONES, NAYELI ([id number]), senior technical editor EMMANUEL DOMINGUEZ ([id number]) on 08/11/2020 10:14:43 AM Referred By: MEDINA Confirmed By:NAYELI FOSTER MD
--- NOTE | 2020-08-09 05:13 | RAD_ITS ---
STUDY: X-RAY CHEST REASON FOR EXAM: Female, 44 years old. Pre-op TECHNIQUE: Single AP portable view of the chest. COMPARISON: 04/17/2017. FINDINGS: There are no confluent pulmonary infiltrates. There is no demonstrated pleural abnormality. Normal size heart. Normal mediastinum and radha. Normal visualized aortic arch and descending thoracic aorta. There are no demonstrated acute fractures or destructive bone lesions. There is no demonstrated abnormality of the visualized soft tissue structures of the upper abdomen. RAD/Chest 1 View IMPRESSION: Normal x-ray examination of the chest. Electronically Signed: Triston Cordova MD at 6:20 EDT , Service support ,
[2020-08-09] MEDS: Insulin Lispro 100 UNIT/ML INSULN.PEN 8 UNIT SC (05:17)
[2020-08-09 06:15] LABS: Bedside Glucose 363 mg/dL (70-110)
--- NOTE | 2020-08-09 07:53 | PCM.HP.BLA ---
History and Physical Date of Admission: 08/09/20 Chief Complaint: abdominal pain History of Present Illness: 44 y/o WF presents with RUQ abdominal pain. She has had intermittent episodes of this pain however, this presentation/episode is the worse. She denies jaundice/icterus. LFTs obtained in ED - ALT/AST - 41/85, alkphos 118, tbili normal. US gallbladder Gallbladder: There is a distended gallbladder. The gallbladder wall is thickened and measures 6 mm. There is a negative sonographic Castaneda''s sign. There is mild pericholecystic fluid. There are multiple echogenic structures within the gallbladder, consistent with multiple gallstones. Past Medical History: diabetes - untreated hypertension - untreated Past Surgical History: Tonsillectomy csection uterine ablation bilateral inguinal hernia - umbilical hernia repair right ACL surgery left knee arthroscopy Medications: denies taking chronic medications Allergies: exenatide, doxycycline, erythromycin Social history: TOB use denies Review of Systems: General - denies fevers, denies weight loss, denies anorexia Cardiovascular denies chest pain, denies history of heart attack Pulmonary denies shortness of breath, denies coughing up blood Gastrointestinal as per HPI Neurological denies seizures, denies history of stroke Genitourinary denies burning with urination, denies blood in urine Hematological denies spontaneous/prolonged bleeding Skin denies open non healing wounds Musculoskeletal has some back pain Endocrine note in past records that she had been taking armour thryoid meds, has diabetes - non compliant and untreated Psychological denies hallucinations Physical examination: Vital signs Temp 98.6F HR 105 BP 204/114 RR 18 BMI 42 General WD/WN WF in no apparent distress, alert and oriented, not septic appearing HEENT Normocephalic. EOM intact with sclera clear and no icterus noted. Wearing glasses. Neck is supple with no jugular venous distention noted. Trachea is midline. Lungs normal respiratory excursion, no adventitial sounds noted No labored breathing noted, such as retractions. No cough heard. Heart normal S1 and S2 auscultated. No rubs/clicks/murmurs noted. Normal size and location by auscultation. Abdomen soft but tender in RUQ with positive Castaneda's signs. Difficult to determine if any masses due to patient's body habitus Extremities no pitting edema noted. No obvious deformity noted. Genitourinary/Rectal deferred Skin normal skin integrity. Neurological non focal. Psychological normal affect, patient is calm and appropriate Impression: cholelithiasis, cholecystitis diabetes/hypertension - untreated Discussion/Plan: I have discussed the above with the patient. I have offered the patient the procedure of laparoscopic cholecystectomy, possible cholangiograms. I have explained the procedure to the patient. I have counseled the patient as to the risks of the procedure, including but not limited to: infection, bleeding, injury to any blood vessels/nerves, scar tissue, injury to any intraabdominal organs, injury to kidney/ureters, injury to bowel/bladder, injury to the common bile duct/biliary tree, bile leakage, intraabdominal abscess/bleeding, hernias at incisional sites, wound infections, possible open procedure, complications of anesthesia, postoperative pneumonia/cardiac problems/blood clots etc. the patient understands. Will obtain internal medicine consultation to manage diabetes and hypertension, perioperatively. Check serum TSH - had been on supplemental thyroid meds in past. The patient was offered a surgery/procedure. The provider and patient have discussed in detail the risk of exposure to and/or potential harm posed by the COVID-19 virus with having a surgery/procedure at this time versus the risk of delaying the surgery/procedure. It is not possible to know either the risk of delaying the surgery or procedure or chance of getting an infection with perfect accuracy, but a joint decision was made between the patient and the provider to proceed at this time with the scheduled surgery/procedure. She agrees to proceed. I have answered all questions to the patient?s satisfaction and the patient has no further questions.
[2020-08-09 08:47] LABS: Thyroid Stim Hormone (TSH) 1.22 uIU/mL (0.358-3.74)
[2020-08-09] MEDS: Insulin Lispro 100 UNIT/ML INSULN.PEN SC ×3 (10:19→21:27)
[2020-08-09] MEDS: Lisinopril 5 MG Tablet PO (10:19)
[2020-08-09 10:31] LABS: Bedside Glucose 272 mg/dL (70-110)
[2020-08-09 10:37] LABS: Hemoglobin A1c 10.4 % (3.8-5.6)
[2020-08-09] MEDS: Acetaminophen 325 MG Tablet PO (16:17)
[2020-08-09 16:30] LABS: Bedside Glucose 201 mg/dL (70-110)
--- NOTE | 2020-08-09 16:34 | PN_ITS ---
Patient Problems: Active and Suspected Problems (Last Reviewed 06/06/18 @ 16:30 by Brandi Leo) Acute cholecystitis due to biliary calculus (Acute) Subjective: 44-year-old female presents from home with epigastric abdominal pain. She is admitted by general surgery with plan for cholecystectomy however her blood pressure was significantly elevated as was her blood sugar. She says that she has mild epigastric pain but otherwise feels fine. She has had intermittent episodes of this and currently her gallbladder wall is thickened on ultrasonography. She states that she used to be on blood pressure medications as well as Metformin as an outpatient however she was losing weight and had was able to get her hemoglobin A1c down to 5.7. However she recently suffered some stress in life and abandoned her lifestyle modifications. She has gained weight and has not followed up with her primary care doctor in 2 years. Vitals/I&O's: Vital Signs Temp Pulse Resp BP Pulse Ox 98.3 F 83 18 164/93 H 98 08/09/20 14:57 08/09/20 14:57 08/09/20 14:57 08/09/20 14:57 08/09/20 14:57 Oxygen Delivery Method Room Air Weight: 298 lb Body Mass Index (BMI) 41.5 Intake and Output for Last 24 Hours 08/07/20 08/08/20 08/09/20 22:59 23:59 23:59 Intake Total 1650.5 / 1650.5 Balance 1650.5 / 1650.5 General: Alert, Oriented x3, Cooperative, No apparent distress HEENT: Atraumatic, PERRLA, EOMI, Normocephalic Oral: Moist Mucosa Neck: Supple, No JVD Lungs: Clear to auscultation, Normal air movement, No rhonchi, No wheeze, No rales Cardiovascular: Regular rate, Regular Rhythm, Normal S1, Normal S2, No murmurs Abdomen: Soft, Non-Distended, No Hepato-splenomegaly, Obese, Tender - Epigastrium Extremities: No edema, Capillary Refill Less than 3 Seconds Skin: No rashes, No breakdown Neurological: Motor Exam 5/5 strength throughout, Sensory exam intact to light touch and pain Psych/Mental Status: Normal Affect, Appropriate Microbiology Past 72 Hours 08/09/20 05:22 Mucosa - Nose SARS-CoV-2 Antigen (Rapid) - Final Laboratory Results 08/09/20 04:05: WBC 12.1 H, RBC 5.40, Hgb 16.7 H, Hct 48.6 H, MCV 90.0, MCH 30.9, MCHC 34.4, RDW Std Deviation 40.3, RDW Coeff of Iesha 12.2, Plt Count 292, MPV 10.3, Immature Gran % (Auto) 0.300, Neut % (Auto) 74.6 H, Lymph % (Auto) 19.1, [place] % (Auto) 5.1, Eos % (Auto) 0.4, Baso % (Auto) 0.5, Absolute Neuts (auto) 9.0 H, Absolute Lymphs (auto) 2.32, Nucleated RBC % 0 08/09/20 04:05: Sodium 134 L, Potassium 3.7, Chloride 98, Carbon Dioxide 28.0, Anion Gap 8, BUN 12, Creatinine 0.87, Estim Creat Clear Calc 91.27, Est GFR (MDRD) Af Amer 90, Est GFR (MDRD) Non-Af 74, BUN/Creatinine Ratio 13.8, Glucose 361 H, Calcium 9.9, Total Bilirubin 1.00, AST 41 H, ALT 85 H, Alkaline Phosphatase 118 H, Total Protein 8.0, Albumin 4.0, Globulin 4.0, Albumin/Globulin Ratio 1.0, Lipase 156 08/09/20 04:05: TSH 1.22 08/09/20 04:05: Hemoglobin A1c 10.4 H 08/09/20 06:12: POC Glucose 363 H 08/09/20 10:18: POC Glucose 272 H 08/09/20 16:13: POC Glucose 201 H Current Medications Acetaminophen (Acetaminophen 325 Mg Tablet) 325 mg PO Q6H PRN PRN PRN Reason: Pain 1-10 or Fever Last Admin: 08/09/20 16:17 Dose: 325 mg Documented by: Hydrocodone Bitart/Acetaminophen (Hydrocodone Bitartrate/Apap 5/325 Tablet) 1 tablet PO Q4H PRN PRN PRN Reason: Pain Score 1-5 Sodium Chloride () 1,000 mls @ 125 mls/hr IV .Q8H SONG Last Admin: 08/09/20 12:51 Dose: 125 mls/hr Documented by: Piperacillin Sod/Tazobactam (Sod 3.375 gm/ Sodium Chloride) 50 mls @ 12.5 mls/hr IV Q8 [facility] Last Admin: 08/09/20 13:02 Dose: 12.5 mls/hr Documented by: Sodium Chloride () 250 mls @ 15 mls/hr IV .[id number] PRN PRN Reason: Saline Flush Last Infusion: 08/09/20 13:04 Dose: 0 mls/hr Documented by: Insulin Human Lispro (Insulin Lispro 100 Unit/Ml Insuln.Pen) 0 unit SC ACHS [facility]; Protocol Last Admin: 08/09/20 16:14 Dose: 4 u Documented by: Lisinopril (Lisinopril 5 Mg Tablet) 5 mg PO DAILY [facility] Last Admin: 08/09/20 10:19 Dose: 5 mg Documented by: Morphine Sulfate (Morphine 4 Mg/Ml Syringe) 4 mg IV Q1H PRN PRN PRN Reason: Pain Score 6-10 Ondansetron HCl (Ondansetron 4 Mg/2 Ml Vial) 4 mg IV Q8H PRN PRN PRN Reason: NAUSEA/VOMITING Sodium Chloride (0.9% Saline Lock 10 Ml Syringe) 10 - 40 ml IV UD PRN PRN Reason: SALINE FLUSH STROKE Vital Signs/Narrative: Vital Signs Temp Pulse Resp BP Pulse Ox 08/09/20 14:57 98.3 F 83 18 164/93 H 98 Medical Necessity - Tobacco Use Smoking Status: Never smoker Assessment/Plan All Active Problems (Last Reviewed 06/06/18 @ 16:30 by Brandi Leo) Acute cholecystitis due to biliary calculus (Acute) Lower GI bleed (Resolved) Dermatitis (Acute) 1. Acute cholecystitis -Continue with pain meds and antibiotics per primary -Continue with a clear liquid diet -Her blood sugars are getting under control and her blood pressure will be treated with lisinopril, I see no reason why she cannot undergo surgery in the morning 2. Morbid obesity/DM 2 -She is willing to restart her lifestyle modifications however in the meantime we will assist with sliding scale insulin at this time -Plan will be to discharge her on 500 mg of extended release Metformin p.o. daily 3. Hypertension -She was supposed to be on 5 mg lisinopril daily at home -Will restart and monitor her blood pressure DVT: SCDs OBSV E&M: [id number] Subsequent observation care L3
[2020-08-09 21:45] LABS: Bedside Glucose 168 mg/dL (70-110)
[2020-08-10] VITALS (11 sets, daily range): BP systolic 118–170; BP diastolic 70–92; PULSE 70–92; RESP 16–18; TEMP 36.1–36.8; O2SAT 92–96; BMI 41.5
--- NOTE | 2020-08-10 | GALL_PTH ---
PATIENT: DELFINA BARBOSA LOC: [facility] U#:[id number] AGE/SX: 44/F ROOM: [facility]313 RE08/09/[address]: Dr. Tiffani Farnsworth MD : 1975 BED: 1 DIS: 08/10/2020 SPEC #: [id number] RECD: 08/10/20 11:34 STATUS: DANIELE REQ #: [id number] RADHA: 08/10/20 00:[address]: Tiffani Farnsworth DEPT: SURGICAL PATHOLOGY RECD BY: Rl Figueroa ENTERED: 08/10/20 11:34 SP TYPE: [facility] ELLI[facility] DR: MD Dr. Cristiano Green MD Tissues: Gallbladder, NOS Procedures: Surgery Specimen Level III HEADER OPERATION: Laparoscopic cholecystectomy PRE-OP DIAGNOSIS: Cholelithiasis, cholecystitis TISSUE SUBMITTED: Gallbladder MICROSCOPIC DIAGNOSIS Gallbladder, cholecystectomy: Cholesterolosis, chronic cholecystitis and cholelithiasis. AM:dandre 08/11/2020 MICROSCOPIC DESCRIPTION Slides are reviewed. GROSS DESCRIPTION Received is one container labeled with the patient's name and designated gallbladder. The specimen consists of a gallbladder measuring 10 x 3.5 x 1.2 cm. The external surface is smooth and glistening. Focally, it is granular, hemorrhagic and contains cautery artifact. The lumen of the gallbladder contains yellow-green mucoid bile and multiple black calculi ranging in size from <0.1 to 0.6 cm in greatest dimension. The mucosa is bile-stained and without any mass lesions. The gallbladder wall averages 0.3 cm in thickness and is free of mass lesions. Gill Net Stringer sections of the gallbladder and the cystic duct at margin of resection are submitted in one cassette. / AM:dandre 08/10/20 TC:3 CPT: 37484
[2020-08-10] MEDS: 0.9% Normal Saline 1,000 ML 125 ML IV (03:53)
[2020-08-10 06:56] LABS: Bedside Glucose 265 mg/dL (70-110)
--- NOTE | 2020-08-10 08:39 | OP.PCM_ITS ---
Report of Operation Date of Procedure: 08/10/20 Pre-Operative Diagnosis: acute cholecystitis and cholelithiasis Post-Operative Diagnosis: same Surgery/Procedure Performed:: laparoscopic cholecystectomy Description of Surgical Findings:: thickened edematous gallbladder wall c/w acute cholecystitis, cholelithiasis, fatty liver changes ditching machine engineer: Lalitha Knott Type of Anesthesia:: General Anesthesiologist: Alfonso Way Specimen's removed: gallbladder and contents Drains: none Estimated Blood Loss (mL): < 10 ml Fluids Replaced: 1000 ml RL Description of Procedure: After informed consent was given, the patient was brought to the Operating Room. Appropriate time out protocol was followed. The patient was placed in the supine position. The patient was then placed under general endotracheal anesthesia by the anesthesia provider. The abdomen was then prepped with a sterile surgical skin preparation and sterile surgical drapes were placed. An area superior to the umbilical dimple was grasped with penetrating clamps and the skin and subcutaneous tissues were infiltrated with 0.25% marcaine with epinephrine. A skin incision was then made with a 15 blade scalpel. The anterior abdominal wall was elevated and a Veress needle was carefully inserted into the intraabdominal cavity. It was checked to be in the proper position with a normal saline drop test. A CO2 pneumoperitoneum was then created. Once this was achieved, then the Veress needle was removed and an 11mm trocar was placed in its stead. A 10mm laparoscope was then inserted into the trocar and careful attention was directed to the intraabdominal contents. There was no evidence of injury to any intraabdominal organs from insertion of the Veress needle or the trocar. Under direct visualization, a 5mm subxiphoid trocar and two lateral 5mm right subcostal trocars were placed. The skin and subcutaneous tissues at these sites were infiltrated with 0.25% marcaine with epinephrine prior to placement of these trocars. Attention was then directed to the right upper quadrant of the abdomen. The gallbladder wall was edematous and thickened. There was pericholecystic fluid present. These findings were consistent with acute cholecystitis. The liver had color changes consistent with fatty infiltration, however it was pliable and not stiff. The liver edges was minimally blunted. Graspers were placed in the lateral trocars to grasp the distal aspect of the gallbladder and direct it cephalad and to grasp the gallbladder at Bland?s pouch and direct it laterally. Dissection then began on the proximal gallbladder continuing down to the area of the triangle of Calot to bluntly dissect out the cystic duct. The neck of the gallbladder was identified and blunt dissection continued to dissect out a segment of the cystic duct. A clip was then placed on the neck of the gallbladder. Two clips were placed proximally and the cystic duct was then transected. The cystic artery was visualized and bluntly isolated and then two clips were placed proximally and one clip distally and then it was transected between the proximal and distal clips. The gallbladder was then from the liver bed using electrocautery. Once from the liver bed, it was brought out via the julisa-umbilical port in an Endobag. It was then forwarded to pathology for analysis. The liver bed was carefully examined. There was no evidence of bile leakage or bleeding. The cystic duct stump and cystic artery stump had their clips intact and there was no evidence of bile leakage or bleeding. The remainder of the abdomen was grossly normal. The CO2 was released and all trocars removed intact. The periumbilical fascia was approximated with a [id number] 0 vicryl suture. All skin incision were closed with 4-0 monocryl in a subdermal fashion. Cavilol and Steristrips were used to reinforce the skin closure. Sterile dressings were applied to all wounds. Sponge, needle and instrument count was verified and correct at time of skin closure. The patient was extubated and brought to the Recovery Room in stable condition. - Complications none noted - Admit VTE Documentation VTE Present on Admission: Yes VTE Mechan Device Prophylaxis: SCD's
[2020-08-10] MEDS: Bupiv/Epi 0.25% 30 ML Vial (08:41)
--- NOTE | 2020-08-10 08:53 | PCM.DC.GB ---
Discharge Diet: No Restrictions - drink plenty of water, avoid carbonated beverages for a couple of days Discharge Activity: Return to Normal Activity, May not drive while taking narcotic pain medications. Lifting Restrictions: no lifting greater than 20 pounds for two weeks Call your doctor if your incision/area has: Continuous Slow Oozing, Foul Smelling Discharge Call your doctor if you observe: Fever of 101 or Higher Additional Instructions: Recommended pain control regimen - May take 600 mg ibuprofen (Motrin) and then in 3-4 hours, may take 650 mg acetaminophen (Tylenol), then in 3-4 hours may take 600 mg ibuprofen, then in 3-4 hours may take 650 mg acetaminophen and so on for 2-3 days May take narcotic pain medication for pain that is not controlled by above and at night for comfort through the night Leave dressings in place May get dressings wet in shower - do not scrub in the area and pat dry Do not soak - no tub baths/swimming Avoid carbonated beverages for a couple of days as they may cause bloating which may cause you discomfort after abdominal surgery Please call for a follow up appointment at the office to be seen in 1-2 weeks for a date and time available at your convenience. Call . Allergies/Adverse Reactions: Allergies exenatide [From Bydureon] Allergy (Unknown, Verified 08/09/20 04:09) Site sore, bump under skin doxycycline Adverse Reaction (Verified 08/09/20 04:09) Hives erythromycin base [Erythromycin Base] Adverse Reaction (Verified 08/09/20 04:09) Abd cramps/diarrhea Medications to take at Discharge Lactobacillus Combination No.4 [Probiotic] 1 ea PO DAILY 08/09/20 Multivit-Min/Lycop/Lut/Txhf858 [Phytomulti Tablet] 1 ea PO DAILY 08/09/20 Multivitamin [Multiple Vitamins] 1 ea PO DAILY 08/09/20 Amoxicillin/Potassium Clav [Augmentin 875-125 Tablet] 1 ea PO BID 5 Days #10 tab 08/10/20 Hydrocodone Bitart/Apap 5-325 [[place] 5MG-325MG] 1 tablet PO Q8H PRN PRN 5 Days #15 tablet 08/10/20 The following prescriptions were given: Amoxicillin/Potassium Clav [Augmentin 875-125 Tablet] 1 ea PO BID 5 Days #10 tab Transmission Status: Pending to [id number] Hydrocodone Bitart/Apap 5-325 [[place] 5MG-325MG] 1 tablet PO Q8H PRN PRN 5 Days #15 tablet PRN Reason: Pain Score 4-10 Transmission Status: Received by [id number] Primary Care Physician: Plama Betancourt MD [Primary Care Provider] - Test Results: Test results from this visit will be discussed in further detail at your follow-up appointment, if applicable. Please Follow Up With: Tiffani Farnsworth MD - call When: to be seen in 1-2 weeks, see above
[2020-08-10] MEDS: Lactated Ringers 1,000 ML 100 ML IV ×2 (09:14→10:58)
[2020-08-10 09:25] LABS: Bedside Glucose 306 mg/dL (70-110)
[2020-08-10] MEDS: Insulin Lispro 100 UNIT/ML INSULN.PEN SC ×2 (09:39→16:35)
--- NOTE | 2020-08-10 09:44 | PCM.PN.HOSP ---
Patient Problems: Active and Suspected Problems (Last Reviewed 06/06/18 @ 16:30 by Brandi Leo) Acute cholecystitis due to biliary calculus (Acute) Subjective: Underwent laparoscopic cholecystectomy today. Blood pressure prior to surgery was stable however he does appear to be a little bit more elevated now after surgery since she missed her morning dose of lisinopril. She also did not receive her morning insulin therefore her blood sugar is now back over 300, will continue to monitor. Vitals/I&O's: Vital Signs Temp Pulse Resp BP Pulse Ox 97.0 F L 76 16 158/80 H 96 08/10/20 09:00 08/10/20 09:30 08/10/20 09:30 08/10/20 09:30 08/10/20 09:30 Oxygen Flow Rate (L/min) 2 Oxygen Delivery Method Nasal Cannula Weight: 297 lb 15.981 oz Body Mass Index (BMI) 41.5 Intake and Output for Last 24 Hours 08/08/20 08/09/20 08/10/20 23:59 23:59 23:59 Intake Total 2700.5 / 3200.5 2635.58 / 2635.58 Balance 2700.5 / 3200.5 2635.58 / 2635.58 General: Alert, Oriented x3, Cooperative, No apparent distress HEENT: Atraumatic, PERRLA, EOMI, Normocephalic Oral: Moist Mucosa Neck: Supple, No JVD Lungs: Clear to auscultation, Normal air movement, No rhonchi, No wheeze, No rales Cardiovascular: Regular rate, Regular Rhythm, Normal S1, Normal S2, No murmurs Abdomen: Soft, Non-Distended, No Hepato-splenomegaly, Obese, Tender - Epigastrium Extremities: No edema, Capillary Refill Less than 3 Seconds Skin: No rashes, No breakdown, incisions are dressed Neurological: Motor Exam 5/5 strength throughout, Sensory exam intact to light touch and pain Psych/Mental Status: Normal Affect, Appropriate Microbiology Past 72 Hours 08/09/20 05:22 Mucosa - Nose SARS-CoV-2 Antigen (Rapid) - Final Laboratory Results 08/09/20 04:05: Hemoglobin A1c 10.4 H 08/09/20 10:18: POC Glucose 272 H 08/09/20 16:13: POC Glucose 201 H 08/09/20 21:25: POC Glucose 168 H 08/10/20 06:53: POC Glucose 265 H 08/10/20 09:22: POC Glucose 306 H Current Medications Acetaminophen (Acetaminophen 325 Mg Tablet) 325 mg PO Q6H PRN PRN PRN Reason: Pain 1-10 or Fever Last Admin: 08/09/20 16:17 Dose: 325 mg Documented by: Hydrocodone Bitart/Acetaminophen (Hydrocodone Bitartrate/Apap 5/325 Tablet) 1 tablet PO Q4H PRN PRN PRN Reason: Pain Score 1-5 Sodium Chloride () 1,000 mls @ 125 mls/hr IV .Q8H [facility] Last Infusion: 08/10/20 09:13 Dose: Infused Documented by: Piperacillin Sod/Tazobactam (Sod 3.375 gm/ Sodium Chloride) 50 mls @ 12.5 mls/hr IV Q8 [facility] Last Infusion: 08/10/20 09:12 Dose: Infused Documented by: Sodium Chloride () 250 mls @ 15 mls/hr IV .[id number] PRN PRN Reason: Saline Flush Last Infusion: 08/10/20 05:16 Dose: 0 mls/hr Documented by: Lactated Ringer's () 1,000 mls @ 100 mls/hr IV .Q10H [facility] Last Admin: 08/10/20 09:14 Dose: 100 mls/hr Documented by: Insulin Human Lispro (Insulin Lispro 100 Unit/Ml Insuln.Pen) 0 unit SC [facility]; Protocol Last Admin: 08/10/20 09:39 Dose: 6 u Documented by: Lisinopril (Lisinopril 5 Mg Tablet) 5 mg PO DAILY [facility] Last Admin: 08/09/20 10:19 Dose: 5 mg Documented by: Morphine Sulfate (Morphine 4 Mg/Ml Syringe) 4 mg IV Q1H PRN PRN PRN Reason: Pain Score 6-10 Ondansetron HCl (Ondansetron 4 Mg/2 Ml Vial) 4 mg IV Q8H PRN PRN PRN Reason: NAUSEA/VOMITING Sodium Chloride (0.9% Saline Lock 10 Ml Syringe) 10 - 40 ml IV UD PRN PRN Reason: SALINE FLUSH STROKE Vital Signs/Narrative: Vital Signs Temp Pulse Resp BP Pulse Ox 08/10/20 09:30 76 16 158/80 H 96 08/10/20 09:15 70 16 158/78 H 92 08/10/20 09:00 97.0 F L 72 17 159/70 H 95 08/10/20 06:47 98.0 F 92 18 118/80 95 Medical Necessity - Tobacco Use Smoking Status: Never smoker Assessment/Plan All Active Problems (Last Reviewed 06/06/18 @ 16:30 by Brandi Leo) Acute cholecystitis due to biliary calculus (Acute) Lower GI bleed (Resolved) Dermatitis (Acute) 1. Acute cholecystitis -Continue with pain meds and antibiotics per primary -ADAT per surgery -Her blood sugars are getting under control and her blood pressure will be treated with lisinopril, I see no reason why she cannot undergo surgery in the morning 2. Morbid obesity/DM 2 -She is willing to restart her lifestyle modifications however in the meantime we will assist with sliding scale insulin at this time -Plan will be to discharge her on 500 mg of extended release Metformin p.o. daily -A1c is now 10.4 3. Hypertension -She was supposed to be on 5 mg lisinopril daily at home -Will restart and monitor her blood pressure -She will need to follow-up with her PCP in about a week and a half to monitor renal function DVT: SCDs OBSV E&M: [id number] Subsequent observation care L2
[2020-08-10 10:31] LABS: Bedside Glucose 316 mg/dL (70-110)
[2020-08-10] MEDS: Lisinopril 5 MG Tablet PO (10:58)
[2020-08-10] MEDS: HYDROcodone Bitartrate/Apap 5/325 Tablet PO (12:44)
[2020-08-10] MEDS: Ondansetron 4 MG/2 ML Vial IV (16:21)
[2020-08-10] MEDS: 0.9% Saline Lock 10 ML Syringe IV (16:21)
--- NOTE | 2020-08-10 16:34 | PHA.DC.MC ---
Pharmacy Service has performed discharge medication reconciliation and counseling for this patient. 1. AUGMENTIN 875MG PO BID X 7 DAYS 2. HYDROCODONE/ACETAMINOPHEN 5/325MG 1T PO Q8H PRN PAIN 3. LISINOPRIL 5MG PO DAILY 4. METFORMIN XR 500MG PO DAILY The patient's discharge medication list was reviewed for discrepancies and discrepancies were resolved. Home Medications Lactobacillus Combination No.4 [Probiotic] 1 ea PO DAILY 08/09/20 Multivit-Min/Lycop/Lut/Lctp970 [Phytomulti Tablet] 1 ea PO DAILY 08/09/20 Multivitamin [Multiple Vitamins] 1 ea PO DAILY 08/09/20 Amoxicillin/Potassium Clav [Augmentin 875-125 Tablet] 1 ea PO BID 5 Days #10 tab 08/10/20 Hydrocodone Bitart/Apap 5-325 [[place] 5MG-325MG] 1 tab PO Q8H PRN PRN 5 Days #15 tab 08/10/20 Lisinopril 5 mg PO DAILY #30 tab 08/10/20 Metformin HCl [Metformin ER Gastric] 500 mg PO DAILY #30 [id number] 08/10/20 Ondansetron HCl [Zofran] 4 mg PO Q12H PRN PRN 3 Days #6 tablet 08/10/20 The patient was counseled on the following discharge medications and changes in medications for homegoing were reviewed. The Reason for Use, instructions for use, and potential side effects were reviewed for all new medications. The patient's questions regarding all of their medications were answered. The patient was able to verbally demonstrate an understanding of their discharge medications.
[2020-08-10 16:50] LABS: Bedside Glucose 285 mg/dL (70-110)
== END 2020-08-10 18:20 | disposition home or self-care (01) ==
LOC: ED 05:13 → MS3 07:58
PROVIDERS: Family Medicine; Admitting Provider Surgery; Emergency Provider Emergency Medicine; PCP Internal Medicine; Visit Provider Surgery
PROC: (CPT 47610; principal; 2020-08-10 07:10)
DX: K80.10 Calculus of gallbladder with chronic cholecystitis without obstruction (principal); E11.9 Type 2 diabetes mellitus without complications; I10 Essential (primary) hypertension; E66.01 Morbid (severe) obesity due to excess calories; Z68.41 Body mass index [BMI] 40.0-44.9, adult; K76.0 Fatty (change of) liver, not elsewhere classified
CPT/HCPCS: 00790; 47562; 71045; 76705; 80053; 82962; 83036; 83690; 84443; 85025; 87426; 88304; 93005; 96361; 96365; 96366; 96375; 96376; 99218; 99251; 99284; J7030; J7050; J7120; A4216; G0378; G0463; J2405

== ENCOUNTER → 2020-12-29 07:28 | Outpatient (CLI) | payer MEDICAID, SELFPAY ==
[2020-12-20 09:03] VITALS: BMI 41.8
--- NOTE | 2020-12-29 07:30 | BI_ITS ---
MAMMOGRAPHY - BILATERAL SCREENING REASON FOR EXAM: Female, 45 years old. Routine annual screening examination. PERTINENT HISTORY: Screening TECHNIQUE: Digital bilateral breast candelario (3D mammographic acquisition) in the CC and MLO projections. 2-D mediolateral oblique (MLO) and craniocaudad (CC) views of both breasts were obtained. CAD: Full Field Digital Mammography with Computer Added Detection was performed. COMPARISON: Previous mammogram obtained on 12/13/2018 FINDINGS: Breast Composition: Dense There are no dominant masses or suspicious calcifications. No other significant abnormalities are identified. BI/SCRN MAMM (CAD)W/CANDELARIO BILAT IMPRESSION: Stable bilateral screening mammogram. Yearly follow-up mammogram recommended. (A) ASSESSMENT CATEGORY: BIRADS Category 1: Negative. A letter regarding these results will be sent to the patient by the facility within 30 days. Approximately 10% of breast cancers are not detected by mammography. A normal mammogram should not delay biopsy of a clinically suspicious abnormality. [id number] Electronically Signed: Jose C Mendoza DO at 15:53 EDT Tel , Service support ,
== END ==
PROVIDERS: PCP Internal Medicine; Referring Provider Physician Assistant; Visit Provider Physician Assistant
DX: Z12.31 Encounter for screening mammogram for malignant neoplasm of breast (principal)
CPT/HCPCS: 77063; 77067

== ENCOUNTER → 2021-03-21 14:51 | Outpatient (CLI) | payer MEDICAID, SELFPAY ==
[2021-03-21 17:48] LABS: Absolute Lymphocyte Count 2.08 X10^3/uL (0.83-4.51); Absolute Neutrophil Count 7.4 X10^3/uL (2.0-7.7); Basophil# 0.07 X10^3/uL; Basophil% 0.7 % (0-1); Eosinophil# 0.13 X10^3/uL; Eosinophils% 1.3 % (0-5); Hematocrit 42.1 % (37-47); Hemoglobin 14.3 g/dL (12.0-15.0); Lymphocyte # 2.08 X10^3/ul (0.83-4.51); Lymphocyte % 20.3 % (19-41); Mean Corpuscular Hgb 31.2 pg (27.0-32.0); Mean Corpuscular Volume 91.7 fL (81-99); Mean Platelet Vol. 10.1 fl (6.2-12.0); Monocyte# 0.58 X10^3/uL; Monocyte% 5.7 % (0-10); NRBC Flagged by Analyzer 0 % (0-5); Neutrophil # 7.36 X10^3/uL (2.7-7.7); Neutrophil % 71.6 % (47-70); Platelet Count 299 K/mm3 (150-450); RBC Distribution Width CV 12.7 % (11.6-14.6); RBC Distribution Width SD 42.8 fl (35.1-43.9); Red Blood Count 4.59 M/mm3 (4.2-5.4); White Blood Count 10.3 K/mm3 (4.4-11.0)
[2021-03-21 18:12] LABS: ALB/GLOB Ratio 0.9 RATIO (0.9-2.4); AST(SGOT) 35 U/L (15-37); Alanine Aminotransfer ALT/SGPT 46 U/L (13-56); Albumin, Serum 3.5 g/dL (3.2-5.0); Alkaline Phosphatase 77 U/L (45-117); Anion Gap 7 (5-15); BUN 11 mg/dL (7-18); BUN/Creat Ratio 15.2 RATIO (10-20); Calcium,Total 9.4 mg/dL (8.5-10.1); Chloride 102 mmol/L (98-107); Creatinine, Serum 0.72 mg/dL (0.55-1.02); EST Glomerular Filtration Rate 92 mL/min (>60); Est Glom Filt Rate - Afr Amer 111 mL/min (>60); Globulin 3.9 g/dL (2.2-4.2); Glucose 106 mg/dL (74-106); Protein, Total 7.4 g/dL (6.4-8.2); Sodium Level 139 mmol/L (136-145)
== END ==
PROVIDERS: PCP Internal Medicine; Visit Provider Internal Medicine
DX: E11.9 Type 2 diabetes mellitus without complications (principal)
CPT/HCPCS: 36415; 80053; 85025

== ENCOUNTER 2021-09-15 13:06 | Outpatient (CLI) | payer MEDICAID, SELFPAY ==
[2021-09-15 14:26] LABS: Microalbumin:Creatinine Ratio 29.3 mg/g CRE (<30 mg/g CRE)
[2021-09-15 15:33] LABS: Anion Gap 9 (5-15); BUN 11 mg/dL (7-18); BUN/Creat Ratio 12.6 RATIO (10-20); Calcium,Total 9.9 mg/dL (8.5-10.1); Chloride 100 mmol/L (98-107); Creatinine, Serum 0.88 mg/dL (0.55-1.02); EST Glomerular Filtration Rate 74 mL/min (>60); Est Glom Filt Rate - Afr Amer 89 mL/min (>60); Glucose 268 mg/dL (74-106); Sodium Level 137 mmol/L (136-145); Thyroid Stim Hormone (TSH) 0.59 uIU/mL (0.358-3.74)
== END 2021-09-15 23:59 | disposition home or self-care (01) ==
LOC: BIMLAB 13:07
PROVIDERS: PCP Internal Medicine; Referring Provider Internal Medicine; Visit Provider Internal Medicine
DX: E11.69 Type 2 diabetes mellitus with other specified complication (principal); E03.9 Hypothyroidism, unspecified
CPT/HCPCS: 36415; 80048; 82043; 82570; 84443

== ENCOUNTER → 2022-03-14 | Outpatient (CLI) | payer MEDICAID, SELFPAY ==
[2022-03-14 18:13] LABS: Absolute Lymphocyte Count 2.71 X10^3/uL (0.83-4.51); Absolute Neutrophil Count 8.4 X10^3/uL (2.0-7.7); Basophil# 0.07 X10^3/uL; Basophil% 0.6 % (0-1); Eosinophil# 0.15 X10^3/uL; Eosinophils% 1.3 % (0-5); Hematocrit 42.7 % (37-47); Hemoglobin 14.4 g/dL (12.0-15.0); Lymphocyte # 2.71 X10^3/ul (0.83-4.51); Lymphocyte % 22.6 % (19-41); Mean Corp Hgb Conc 33.7 g/dL (32-36); Mean Corpuscular Hgb 30.5 pg (27.0-32.0); Mean Corpuscular Volume 90.5 fL (81-99); Mean Platelet Vol. 10.2 fl (6.2-12.0); Monocyte# 0.63 X10^3/uL; Monocyte% 5.3 % (0-10); NRBC Flagged by Analyzer 0 % (0-5); Neutrophil # 8.37 X10^3/uL (2.7-7.7); Neutrophil % 69.8 % (47-70); Platelet Count 297 K/mm3 (150-450); RBC Distribution Width CV 12.3 % (11.6-14.6); RBC Distribution Width SD 40.6 fl (35.1-43.9); Red Blood Count 4.72 M/mm3 (4.2-5.4)
[2022-03-14 18:36] LABS: AST(SGOT) 33 U/L (15-37); Alanine Aminotransfer ALT/SGPT 52 U/L (13-56); Albumin, Serum 3.9 g/dL (3.2-5.0); Alkaline Phosphatase 91 U/L (45-117); Anion Gap 7 (5-15); BUN 9 mg/dL (7-18); BUN/Creat Ratio 10.8 RATIO (10-20); Calcium,Total 9.5 mg/dL (8.5-10.1); Chloride 101 mmol/L (98-107); Cholesterol 188 mg/dL (200); Creatinine, Serum 0.83 mg/dL (0.55-1.02); EST Glomerular Filtration Rate 78 mL/min (>60); Est Glom Filt Rate - Afr Amer 94 mL/min (>60); Glucose 223 mg/dL (74-106); High Density Lipoprotein 50 mg/dL; Potassium 3.6 mmol/L (3.5-5.1); Protein, Total 7.9 g/dL (6.4-8.2); Sodium Level 138 mmol/L (136-145); Triglycerides 165 mg/dL; Very Low Density Lipoprotein 33 mg/dL (5-40)
[2022-03-14 18:45] LABS: Hemoglobin A1c 6.7 % (3.8-5.6)
[2022-03-14 18:51] LABS: Microalbumin,Random Urine 10.5 mg/L (NO RANGE EST.)
== END | disposition home or self-care (01) ==
LOC: MTLAB 16:23
PROVIDERS: PCP Internal Medicine; Referring Provider Internal Medicine; Visit Provider Internal Medicine
DX: I10 Essential (primary) hypertension (principal); E11.9 Type 2 diabetes mellitus without complications
CPT/HCPCS: 36415; 80053; 80061; 82043; 82570; 83036; 85025

== ENCOUNTER → 2022-09-08 | Outpatient (CLI) | payer MEDICAID, SELFPAY ==
[2022-09-08 12:59] LABS: Anion Gap 6 (5-15); BUN 9 mg/dL (7-18); BUN/Creat Ratio 11.3 RATIO (10-20); Calcium,Total 9.2 mg/dL (8.5-10.1); Chloride 101 mmol/L (98-107); EST Glomerular Filtration Rate 82 mL/min (>60); Est Glom Filt Rate - Afr Amer 99 mL/min (>60); Glucose 315 mg/dL (74-106); Sodium Level 133 mmol/L (136-145)
[2022-09-08 13:00] LABS: Hemoglobin A1c 8.8 % (3.8-5.6)
== END | disposition home or self-care (01) ==
LOC: MTLAB 10:57
PROVIDERS: PCP Internal Medicine; Referring Provider Internal Medicine; Visit Provider Internal Medicine
DX: E11.9 Type 2 diabetes mellitus without complications (principal)
CPT/HCPCS: 36415; 80048; 83036

== ENCOUNTER → 2023-03-22 | Outpatient (CLI) | payer MEDICAID, SELFPAY ==
[2023-03-22 17:00] LABS: Absolute Lymphocyte Count 2.38 X10^3/uL (0.83-4.51); Absolute Neutrophil Count 7.7 X10^3/uL (2.0-7.7); Basophil# 0.05 X10^3/uL; Basophil% 0.5 % (0-1); Eosinophil# 0.11 X10^3/uL; Hematocrit 43.2 % (37-47); Hemoglobin 14.1 g/dL (12.0-15.0); Lymphocyte # 2.38 X10^3/ul (0.83-4.51); Lymphocyte % 21.8 % (19-41); Mean Corp Hgb Conc 32.6 g/dL (32-36); Mean Corpuscular Hgb 29.6 pg (27.0-32.0); Mean Corpuscular Volume 90.6 fL (81-99); Mean Platelet Vol. 10.2 fl (6.2-12.0); Monocyte# 0.65 X10^3/uL; NRBC Flagged by Analyzer 0 % (0-5); Neutrophil # 7.69 X10^3/uL (2.7-7.7); Neutrophil % 70.4 % (47-70); Platelet Count 301 K/mm3 (150-450); RBC Distribution Width CV 12.1 % (11.6-14.6); RBC Distribution Width SD 40.2 fl (35.1-43.9); Red Blood Count 4.77 M/mm3 (4.2-5.4); White Blood Count 10.9 K/mm3 (4.4-11.0)
[2023-03-22 17:08] LABS: ALB/GLOB Ratio 0.9 RATIO (0.9-2.4); AST(SGOT) 25 U/L (15-37); Alanine Aminotransfer ALT/SGPT 52 U/L (13-56); Albumin, Serum 3.6 g/dL (3.2-5.0); Alkaline Phosphatase 80 U/L (45-117); Anion Gap 5 (5-15); BUN 10 mg/dL (7-18); BUN/Creat Ratio 11.5 RATIO (10-20); Calcium,Total 9.5 mg/dL (8.5-10.1); Chloride 105 mmol/L (98-107); Cholesterol 191 mg/dL (200); Creatinine, Serum 0.87 mg/dL (0.55-1.02); EST Glomerular Filtration Rate 74 mL/min (>60); Est Glom Filt Rate - Afr Amer 90 mL/min (>60); Globulin 3.9 g/dL (2.2-4.2); Glucose 140 mg/dL (74-106); High Density Lipoprotein 45 mg/dL; Potassium 3.9 mmol/L (3.5-5.1); Protein, Total 7.5 g/dL (6.4-8.2); Sodium Level 140 mmol/L (136-145); T4 Free Direct 1.01 ng/dL (0.76-1.46); Thyroid Stim Hormone (TSH) 0.34 uIU/mL (0.358-3.74); Triglycerides 104 mg/dL; Very Low Density Lipoprotein 21 mg/dL (5-40)
[2023-03-22 17:19] LABS: Microalbumin,Random Urine < 5.0 mg/L (NO RANGE EST.)
== END | disposition home or self-care (01) ==
LOC: BIMLAB 15:08
PROVIDERS: PCP Internal Medicine; Referring Provider Internal Medicine; Visit Provider Internal Medicine
DX: E11.9 Type 2 diabetes mellitus without complications (principal); E03.9 Hypothyroidism, unspecified
CPT/HCPCS: 36415; 80053; 80061; 82043; 82570; 84439; 84443; 85025

== ENCOUNTER → 2023-06-21 | Outpatient (CLI) | payer MEDICAID, SELFPAY | END | disposition home or self-care (01) | LOC: LABSPEC 15:32 | PROVIDERS: PCP Internal Medicine; Referring Provider Internal Medicine; Visit Provider Internal Medicine | DX: J06.9 Acute upper respiratory infection, unspecified (principal) | CPT/HCPCS: 87635 ==

== ENCOUNTER → 2023-07-18 | Outpatient (CLI) | payer MEDICAID, SELFPAY ==
--- NOTE | 2023-07-18 13:33 | BI_ITS ---
MAMMOGRAPHY - BILATERAL SCREENING REASON FOR EXAM: Female, 47 years old. Routine annual screening examination. PERTINENT HISTORY: Non-contributory. TECHNIQUE: Digital bilateral breast candelario (3D mammographic acquisition) in the CC and MLO projections. 2-D mediolateral oblique (MLO) and craniocaudad (CC) views of both breasts were obtained. CAD: Full Field Digital Mammography with Computer Added Detection was performed. COMPARISON: Comparison is made with prior study December 29, 2020 and December 14, 1999 FINDINGS: Breast Composition: There are scattered areas of fibroglandular density. There are no dominant masses or suspicious calcifications. No other significant abnormalities are identified. There has been no significant change since the prior study. BI/SCRN MAMM (CAD)W/CANDELARIO BILAT IMPRESSION: Stable bilateral screening mammogram. Yearly follow-up mammogram recommended. (A) ASSESSMENT CATEGORY: BIRADS Category 1: Negative. A letter regarding these results will be sent to the patient by the facility within 30 days. Approximately 10% of breast cancers are not detected by mammography. A normal mammogram should not delay biopsy of a clinically suspicious abnormality. [id number] Electronically Signed: Silvino Magallanes MD at 15:27 EST ,
--- OUTSIDE RECORDS SUMMARY | 2023-07-18 17:07 | XMS RPT_ITS | CCD ---
Author Name Unknown Address [address] [place] [address] Organization [facility] Care Team Providers Care Tree Trimming Line Technician Name Role Phone Breana Romero Unavailable Breana Romero Unavailable Tiffani Farnsworth Unavailable Unavailable Tiffani Farnsworth Unavailable Unavailable NO REFERRING DR Unavailable Unavailable Tiffani Farnsworth Unavailable Unavailable TREVON GUAJARDO Attending Unavailable Allergies Allergy Classification Reported Allergen(s) Allergy Type Date of Onset Reaction(s) Facility (1 source) ERYTHROMYCIN BASE; Translations: [ERYTHROMYCIN BASE] Propensity to adverse reactions (disorder) [facility] Repository (1 source) Erythromycin; Translations: [ERYTHROMYCIN] Drug Allergy 5 [facility] Repository Problems Active Problems Problem Classification Problem Date Documented Da te Episodic/Chronic Joint disorders and dislocations; trauma-related (2 sources) Derangement of knee; Translations: [Other internal derangements of left knee] Onset: 02-02-2017 02-19-2017 Chronic Other nutritional; endocrine; and metabolic disorders (1 source) Obesity, unspecified; Translations: [OBESITY UNSPECIFIED] Onset: 09-26-2016 Chronic Unclassified (1 source) Body mass index (BMI) 40.0-44.9, adult; Translations: [BODY MASS INDEX BMI 40.0] Onset: 09-26-2016 Chronic Past or Other Problems Problem Classification Problem Date Documented Da te Episodic/Chronic Abdominal hernia (3 sources) Unspecified abdominal hernia without obstruction or gangrene; Translations: [Umbilical hernia without obstruction or gangrene] Onset: 09-26-2016 Episodic Fracture of neck of femur (hip) (3 sources) Stress fracture, left femur, subsequent encounter for fracture with routine healing; Translations: [Stress fracture, left femur, initial encounter for fracture] Onset: 02-02-2017 04-01-2017 Episodic Joint disorders and dislocations; trauma-related (6 sources) Other tear of lateral meniscus, current injury, left knee, initial encounter; Translations: [Other tear of medial meniscus, current injury, left knee, initial encounter] Onset: 11-09-2016 Resolved: 01-17-2017 01-17-2017 Episodic Other connective tissue disease (2 sources) Synovial cyst of popliteal space [Diop], left knee; Translations: [Synovial cyst of popliteal space [Diop], left knee] Onset: 02-02-2017 02-19-2017 Episodic Other non-traumatic joint disorders (4 sources) Knee joint effusion; Translations: [Knee pain] Onset: 11-09-2016 02-19-2017 Episodic Sprains and strains (2 sources) Strain of other muscle(s) and tendon(s) of posterior muscle group at lower leg level, left leg, initial encounter; Translations: [Strain of other muscle(s) and tendon(s) of posterior muscle group at lower leg level, left leg, initial encounter] Onset: 11-09-2016 12-01-2016 Episodic Thyroid disorders (1 source) Disorder of thyroid, unspecified; Translations: [DISORDER OF THYROID UNSP] Onset: 09-26-2016 Episodic Results Test Name Value Interpretation Reference Range Facil it Vital Signs Date Time Vital Sign Value Performing Clinician Kwabena mitchell 11-09-2016 08:54-0400 BMI (Body Mass Index) 43.93 kg/m2 [facility] Work Phone: 11-09-2016 08:54-0400 Height 180.34 cm [facility] Work Phone: 11-09-2016 08:54-0400 Weight 142.88 kg [facility] Work Phone: Encounters Encounter Date Encounter Type Care Provider Facility Start: 02-14-2022 End: 02-14-2022 ambulatory TREVON GUAJARDO Facility:[facility] Start: 09-26-2016 End: 09-27-2016 Ambulatory Tiffani Farnsworth Facility:[facility] Procedures Date Procedure Procedure Detail Performing Clinician Start: 11-09-2016 End: 12-01-2016 Arthrocentesis aspir&/inj major jt/bursa w/o us [facility] Work Phone: Start: 09-26-2016 RPR UMBIL CRUZ REDUC > 5 Tiffani Javad Plan of Treatment Date Care Activity Detail Author Start: 04-23-2017 End: 04-23-2017 Appointment Appointment [facility] Work Phone: Start: 04-10-2017 End: 04-10-2017 Appointment Appointment [facility] Work Phone: Start: 01-10-2017 End: 01-10-2017 Mri any jt lower extrem w/o contrast matrl MRI Joint Lower Extremity [facility] Work Phone: Start: 11-15-2016 End: 11-15-2016 Physical Therapy General Physical Therapy [facility], [address] [place] [address], [facility] Work Phone: Start: 11-09-2016 End: 11-09-2016 Radiologic exam knee complete 4/more views X-Ray, Knee [facility] Work Phone: Payers Date Payer Category Payer Medicaid [id number] Unknown [id number] Progress note 02-14-2022 Note Date & Type Note Facility 02-14-2022 Note HNO ID: [id number] Author: Trevon Guajardo MD Service: ? Author Type: Physician Type: Progress Notes Filed: 02/14/2022 9:30 AM Note Text: Pia is a 46 year old who presents for an annual gynecologic exam without complaints. Getting blood sugars under control. some hot flahses. No regular menses since ablation so that was successful. Menses: n/a. Contraception: tubal sterilization HPV vaccine: No Last Pap: 10/24/2016 normal HPV: 10/13/2016 negative History of abnormal pap: No Last mammogram: up to date per PCP Sexually active: Yes OB History T2 L2 SAB2 IAB0 Ectopic0 Multiple0 Live Births0 Relations Manager History LMP: 02/27/2017 (Exact Date), Ablation Age at Menarche: Age at First : Age at Menopause: Relations Manager History Comments: Sexual Activity: Yes; Male; hysterectomy Contraception: Tubal Ligation, Surgical PAST MEDICAL HISTORY Diagnosis Date Cholelithiasis and acute cholecystitis without obstruction 08/10/2020 Hypothyroid 02/2016 PAST SURGICAL HISTORY Procedure Laterality Date ADENOIDECTOMY PRIMARY Adenoidectomy ARTHROSCOPY KNEE DIAGNOSTIC W/WO SYNOVIAL BX SPX Arthroscopy, knee ACL reconstruction DELIVERY ONLY , low transverse DELIVERY ONLY , low transverse HYSTEROSCOPY ENDOMETRIAL ABLATION 03/02/2017 Hysteroscopy w/ Alba endometrial ablation L'SCOPE CHOLECYSTECTOMY 08/10/2020 LAP UMBILICAL HERNIA REPAIR 09/26/2016 RPR 1ST INGUN HRNA AGE 5 YRS/> REDUCIBLE Hernia repair, inguinal SALPINGECTOMY Bilateral 03/01/2017 Laparoscopic bilateral salpingectomy for sterilization TONSILLECTOMY PRIMARY/SECONDARY Tonsillectomy FAMILY HISTORY Problem Relation Age of Onset Coronary Artery Disease Mother Diabetes Mother Asthma Mother Hypertension Mother Lipids Mother Hypertension Father Cancer Sister endometrial Hypertension Sister SOCIAL HISTORY Social History Tobacco Use Smoking status: Never Smokeless tobacco: Never Substance Use Topics Alcohol use: Yes Comment: rarely Drug use: No REVIEW OF SYSTEMS Abdomen: No abdominal pain, nausea, vomiting, diarrhea, or constipation. No bloating, early satiety, indigestion, or increased flatulence. Bladder: No dysuria, gross hematuria, urinary frequency, urinary urgency, or incontinence. Breast: No breast lumps, nipple d/c, overlying skin changes, redness or skin retraction. Allergies and current medication updated:Yes EXAM: BP 144/90 Ht 5' 10 (1.78m) Wt 309 lb (140.2kg) LMP 02/27/2017 BMI 44.34 kg/(m2). GENERAL: pleasant, female in no apparent distress HEENT: Normocephalic, atraumatic, mucus membranes moist, and no lesions NECK: Supple, full range of motion, no adenopathy, and thyroid normal DERMATOLOGY: Normal, without lesions, non-icteric, and non-hirsute BREAST: soft, non-tender, symmetric, no dominant mass, normal nipple-areolar complex, no lymphadenopathy, and no nipple discharge CHEST: Normal inspiratory effort ABDOMEN: soft, non-tender, and no masses PELVIC: external genitalia normal, normal Bartholin's glands, urethra, [place]'s glands, no vulvar lesions, no cervical lesions, good vaginal support, physiologic discharge present, normal appearing perineal body and perianal region BIMANUAL: uterus normal size, shape and consistency, no adnexal masses, and non-tender RECTOVAGINAL: deferred. NEURO: alert and oriented x3,exam grossly non-focal EXTREMITIES: normal ASSESSMENT/PLAN: 1) Health maintenance: Pap done with HPV. Mammogram up to date . 2) Contraception: tubal sterilization. Contraceptive options reviewed and information provided. 3) STD screening: Declined STD check. 4) Follow up one year or sooner as needed offered colon ca screening Trevon Guajardo MD [facility] Summary Purpose Family History No Family History Records FoundNo Family History Records Found Advance Directives No Advanced Directives Records FoundNo Advanced Directives Records Found Additional Source Comments INFORMATION SOURCE (unrecogn ized section and content) DATE CREATED AUTHOR AUTHOR'S ORGANIZ ATION 02/26/2022 [facility] FOR RECORDS PERTAINING TO PATIENTS WHO ARE OR HAVE BEEN ENROLLED IN A CHEMICAL DEPENDENCY/SUBSTANCEABUSE PROGRAM, SOME INFORMATION MAY BE OMITTED. This clinical summary was aggregated from multiple sources. Caution should be exercised in using it in the provision of clinical care. This summary normalizes information from multiple sources, and as a consequence, information in this document may materially change the coding, format and clinical context of patient data. In addition, data may be omitted in some cases. CLINICAL DECISIONS SHOULD BE BASED ON THE PRIMARY CLINICAL RECORDS. [employer] provides no warranty or guarantee of the accuracy or completeness of information in this document.
== END | disposition home or self-care (01) ==
LOC: OPBI 13:33
PROVIDERS: PCP Internal Medicine; Referring Provider Internal Medicine; Visit Provider Internal Medicine
DX: Z12.31 Encounter for screening mammogram for malignant neoplasm of breast (principal)
CPT/HCPCS: 77063; 77067

== ENCOUNTER → 2023-09-20 | Outpatient (CLI) | payer MEDICAID, SELFPAY ==
[2023-09-20 17:19] LABS: Anion Gap 8 (5-15); BUN 11 mg/dL (7-18); BUN/Creat Ratio 14.5 RATIO (10-20); Calcium,Total 9.1 mg/dL (8.5-10.1); Chloride 104 mmol/L (98-107); Creatinine, Serum 0.76 mg/dL (0.55-1.02); EST Glomerular Filtration Rate 86 mL/min (>60); Est Glom Filt Rate - Afr Amer 105 mL/min (>60); Glucose 101 mg/dL (74-106); Sodium Level 140 mmol/L (136-145)
== END | disposition home or self-care (01) ==
LOC: BIMLAB 15:58
PROVIDERS: PCP Internal Medicine; Visit Provider Internal Medicine
DX: I10 Essential (primary) hypertension (principal)
CPT/HCPCS: 36415; 80048

== ENCOUNTER → 2024-01-10 | Outpatient (CLI) | payer MEDICAID, SELFPAY ==
[2024-01-10 11:48] LABS: Absolute Lymphocyte Count 2.51 X10^3/uL (0.83-4.51); Basophil# 0.07 X10^3/uL; Basophil% 0.7 % (0-1); Eosinophil# 0.11 X10^3/uL; Eosinophils% 1.2 % (0-5); Hematocrit 44.1 % (37-47); Hemoglobin 14.7 g/dL (12.0-15.0); Lymphocyte # 2.51 X10^3/ul (0.83-4.51); Lymphocyte % 26.8 % (19-41); Mean Corp Hgb Conc 33.3 g/dL (32-36); Mean Corpuscular Hgb 29.5 pg (27.0-32.0); Mean Corpuscular Volume 88.6 fL (81-99); Mean Platelet Vol. 9.8 fl (6.2-12.0); Monocyte% 6.4 % (0-10); NRBC Flagged by Analyzer 0 % (0-5); Neutrophil # 6.04 X10^3/uL (2.7-7.7); Neutrophil % 64.6 % (47-70); Platelet Count 352 K/mm3 (150-450); RBC Distribution Width CV 12.6 % (11.6-14.6); RBC Distribution Width SD 40.5 fl (35.1-43.9); Red Blood Count 4.98 M/mm3 (4.2-5.4); White Blood Count 9.4 K/mm3 (4.4-11.0)
[2024-01-10 12:12] LABS: ALB/GLOB Ratio 0.9 RATIO (0.9-2.4); AST(SGOT) 31 U/L (15-37); Alanine Aminotransfer ALT/SGPT 53 U/L (13-56); Albumin, Serum 3.7 g/dL (3.2-5.0); Alkaline Phosphatase 89 U/L (45-117); Anion Gap 5 (5-15); BUN 10 mg/dL (7-18); BUN/Creat Ratio 12.2 RATIO (10-20); Calcium,Total 9.2 mg/dL (8.5-10.1); Chloride 103 mmol/L (98-107); Cholesterol 162 mg/dL (200); Creatinine, Serum 0.82 mg/dL (0.55-1.02); EST Glomerular Filtration Rate 79 mL/min (>60); Est Glom Filt Rate - Afr Amer 95 mL/min (>60); Glucose 126 mg/dL (74-106); High Density Lipoprotein 46 mg/dL; Potassium 4.2 mmol/L (3.5-5.1); Protein, Total 7.7 g/dL (6.4-8.2); Sodium Level 138 mmol/L (136-145); Triglycerides 133 mg/dL; Very Low Density Lipoprotein 27 mg/dL (5-40)
== END | disposition home or self-care (01) ==
LOC: LAB 11:17
PROVIDERS: PCP Internal Medicine; Referring Provider Internal Medicine; Visit Provider Internal Medicine
DX: E11.9 Type 2 diabetes mellitus without complications (principal)
CPT/HCPCS: 36415; 80053; 80061; 85025

== ENCOUNTER → 2024-01-31 | Outpatient (CLI) | payer MEDICAID, SELFPAY ==
--- NOTE | 2024-01-31 16:18 | RAD_ITS ---
STUDY: X-RAY CHEST REASON FOR EXAM: Female, 48 years old. Cough, wheezing TECHNIQUE: Frontal and lateral views of the chest. COMPARISON: 08/09/2020. FINDINGS: The lungs are clear and expanded. There is no demonstrated pleural abnormality. Normal size heart. Normal mediastinum and radha. Normal visualized pulmonary arteries. Normal visualized aortic arch and descending thoracic aorta. Normal visualized thoracic spine. Normal visualized ribs, clavicles, and shoulders. There is no demonstrated abnormality of the visualized soft tissue structures of the upper abdomen. RAD/Chest PA and Lateral IMPRESSION: Normal x-ray examination of the chest. Electronically Signed: Barrera Lacey MD at 23:56 EDT ,
== END | disposition home or self-care (01) ==
LOC: RAD 16:12
PROVIDERS: PCP Internal Medicine; Referring Provider Internal Medicine; Visit Provider Internal Medicine
DX: R05.9 Cough, unspecified (principal)
CPT/HCPCS: 71046

== ENCOUNTER → 2024-09-03 | Outpatient (CLI) | payer MEDICAID, SELFPAY ==
--- NOTE | 2024-09-03 13:00 | BI_ITS ---
EXAM: SCRN MAMM (CAD)W/CANDELARIO BILAT 09/03/2024 CLINICAL HISTORY: F, Age 48 y/o , BREAST CANCER SCREENING TECHNIQUE: Bilateral screening digital breast tomosynthesis with 2D and 3D images. Computer aided detection. COMPARISON: Prior exam(s) dated 07/18/2023. FINDINGS: TISSUE DENSITY: The breast tissue is composed of scattered area of fibroglandular density. Bilateral Breast Mammographic Findings: No significant masses, calcifications or other abnormalities are identified. BI/SCRN MAMM (CAD)W/CANDELARIO BILAT IMPRESSION: Right Breast: BIRADS 1 NEGATIVE. Left Breast: BIRADS 1 NEGATIVE. OVERALL FINAL ASSESSMENT: BIRADS 1 NEGATIVE. RECOMMENDATION: Routine annual follow-up in 1 Year A letter with findings and recommendations will be mailed to the patient. Reading Location: [facility]
== END | disposition home or self-care (01) ==
PROVIDERS: PCP Internal Medicine; Referring Provider Internal Medicine; Visit Provider Internal Medicine
DX: Z12.31 Encounter for screening mammogram for malignant neoplasm of breast (principal)
CPT/HCPCS: 77063; 77067

== ENCOUNTER → 2024-10-30 | Outpatient (CLI) | payer BC, MEDICAID, SELFPAY ==
[2024-10-30 15:42] LABS: Absolute Lymphocyte Count 2.63 X10^3/uL (0.83-4.51); Absolute Neutrophil Count 5.2 X10^3/uL (2.0-7.7); Basophil# 0.05 X10^3/uL; Basophil% 0.6 % (0-1); Eosinophil# 0.07 X10^3/uL; Eosinophils% 0.8 % (0-5); Hemoglobin 14.6 g/dL (12.0-15.0); Lymphocyte # 2.63 X10^3/ul (0.83-4.51); Lymphocyte % 30.7 % (19-41); Mean Corp Hgb Conc 34.8 g/dL (32-36); Mean Corpuscular Hgb 29.9 pg (27.0-32.0); Mean Corpuscular Volume 85.9 fL (81-99); Mean Platelet Vol. 10.5 fl (6.2-12.0); Monocyte# 0.63 X10^3/uL; Monocyte% 7.3 % (0-10); NRBC Flagged by Analyzer 0 % (0-5); Neutrophil # 5.17 X10^3/uL (2.7-7.7); Neutrophil % 60.3 % (47-70); Platelet Count 321 K/mm3 (150-450); RBC Distribution Width CV 12.5 % (11.6-14.6); RBC Distribution Width SD 38.9 fl (35.1-43.9); Red Blood Count 4.89 M/mm3 (4.2-5.4); White Blood Count 8.6 K/mm3 (4.4-11.0)
[2024-10-30 15:55] LABS: ALB/GLOB Ratio 1.4 RATIO (0.9-2.4); AST(SGOT) 41 U/L (<=31); Alanine Aminotransfer ALT/SGPT 52 U/L (<=34); Albumin, Serum 4.3 g/dL (3.5-5.0); Alkaline Phosphatase 87 U/L (35-104); Anion Gap 14 (5-15); BUN 9 mg/dL (4-19); BUN/Creat Ratio 12.1 RATIO (10-20); Calcium,Total 8.9 mg/dL (7.6-11.0); Carbon Dioxide 22.8 mmol/L (21.0-32.0); Chloride 100 mmol/L (98-108); Cholesterol 182 mg/dL (<=200); Creatinine, Serum 0.73 mg/dL (0.70-1.20); EST Glomerular Filtration Rate 100 (>60); Glucose 99 mg/dL (70-99); High Density Lipoprotein 41 mg/dL; Low Density Lipoprotein Calc. 122 mg/dL; Potassium 3.9 mmol/L (3.3-5.1); Protein, Total 7.3 g/dL (5.9-8.4); Sodium Level 137 mmol/L (133-145); Total Bilirubin 1.25 mg/dL (0.00-1.30); Triglycerides 91 mg/dL; Very Low Density Lipoprotein 18 mg/dL (5-40); cholesterol:hdl ratio screen 4.41
[2024-10-30 15:56] LABS: Hemoglobin A1c 6.2 % (<=5.6)
== END | disposition home or self-care (01) ==
LOC: MTLAB 11:20
PROVIDERS: PCP Internal Medicine; Referring Provider Internal Medicine; Visit Provider Internal Medicine
DX: E11.69 Type 2 diabetes mellitus with other specified complication (principal)
CPT/HCPCS: 36415; 80053; 80061; 83036; 85025

== ENCOUNTER 2024-12-15 07:36 | Day surgery (SDC) | payer BC, MEDICAID, SELFPAY ==
[2024-12-15] VITALS (7 sets, daily range): BP systolic 110–143; BP diastolic 70–98; PULSE 81–91; RESP 16–20; TEMP 36.1–36.5; O2SAT 93–98; BMI 37.5
[2024-12-15] MEDS: Lactated Ringers 1,000 ML 15 ML IV (08:10)
--- NOTE | 2024-12-15 08:13 | PCM.PRE.AN2 ---
ASA Classification* ASA Classification ASA Classification: 2 Assessment & Plan Anesthesia* Anesthesia Assessment Anesthesia Assessment: Discussed sedation and/or anesthesia options, risks, benefits, and alternatives with patient/parents/legal guardian/POA. Questions invited. The patient/parents/legal guardian/POA seems to understand and agrees to proceed with anesthesia plan. Reviewed the physical assessment, medical history, allergy history and patient home medications list prior to surgery/procedure/anesthetic and documented any changes. Performed airway and anesthesia risk assessments. Anesthesia Type Anesthesia Type: MAC History Source History Obtained from:: Patient and Chart Anesthesia Focused Assessment* Temperature: 97.0 F Pulse Rate: 91 Blood Pressure: 143/98 Respiratory Rate: 20 Pulse Ox: 98 Oxygen Delivery Method: Room Air Airway Assessment Mouth opens: >3 cm Mallampati Score: I Teeth Condition: Intact Neck Range of motion (ROM): Full ROM Labs Anesthesia Preop lab: CBC WBC 8.6 K/mm3 (4.4-11.0) 10/30/24 11:10/30/24 RBC 4.89 M/mm3 (4.2-5.4) 10/30/24 11:10/30/24 Hgb 14.6 g/dL (12.0-15.0) 10/30/24 11:10/30/24 Hct 42.0 % (37-47) 10/30/24 11:10/30/24 Plt Count 321 K/mm3 (150-450) 10/30/24 11:27 10/30/24 CHEMISTRY Potassium 3.9 mmol/L (3.3-5.1) 10/30/24 11:10/30/24 Sodium 137 mmol/L (133-145) 10/30/24 11:10/30/24 BUN 9 mg/dL (4-19) 10/30/24 11:10/30/24 Creatinine 0.73 mg/dL (0.70-1.20) 10/30/24 11:10/30/24 Glucose 99 mg/dL (70-99) 10/30/24 11:10/30/24 POC Glucose 285 mg/dL (70-110) H 08/10/20 16:34 08/10/20 TSH 0.34 uIU/mL (0.358-3.74) L 03/22/23 15:09 03/22/23 COAG PT 13.1 SECONDS (11.7-14.9) 04/17/17 13:30 04/17/17 Urine Test Negative Negative 03/01/17 13:05 03/01/17 Pre-Assessment Diagnosis/Proposed Procedure Planned Operative Procedure(s): CSCOPE OA Anesthesia History Anesthesia History - quitline counselor: Anesthesia History - quitline counselor Hx Hospitalization No 12/11/24 15:59 Any Problems With Anesthesia No 12/11/24 15:59 Cholinesterase deficiency No 12/11/24 15:59 You/Your Family Experience No 12/11/24 15:59 fever (hyperthermia) with Relationship Recent Exposure to Contagious No 12/15/24 08:02 Disease Does patient have nerve No 12/11/24 15:59 stimulator Patient instructed to have device shut off --Does patient have Pacemaker No 12/15/24 08:02 or ICD? When Was Last Pacemaker Check QUESTION #4 FULL TEXT: You/Your Family Experience fever (hyperthermia) with Anesthesia Last Oral Intake Last Oral intake: Last Oral Intake NPO since 05:00 12/15/24 08:02 Meds taken in AM with sips of No 12/15/24 08:02 water? Meds patient instructed to take am of surgery PONV PONV - quitline counselor: PONV - quitline counselor Female Yes 12/11/24 15:59 HX of Motion Sickness No 12/11/24 15:59 HX of N/V After Surgery No 12/11/24 15:59 Non-Smoker Yes 12/11/24 15:59 Duration of Surgery greater No 12/11/24 15:59 than 60 minutes Number of Risk Factors 2 12/11/24 15:59 PONV Score Moderate Risk 12/11/24 15:59 Height & Weight Height & Weight: Anesthesia: Height & Weight Height 5 ft 11 in 12/15/24 08:02 Weight: 122 kg 12/15/24 08:02 Body Mass Index (BMI) 37.5 12/15/24 08:02 Respiratory Assessment Respiratory Assessment - quitline counselor: Respiratory Tract Infection Hx - quitline counselor Hx Respiratory Tract Infection No: . 12/11/24 15:59 STOP Sleep Apnea STOP Sleep Apnea - quitline counselor: STOP Sleep Apnea - quitline counselor Hx Hypertension Yes: CONTROLLED ON MED 12/11/24 15:59 Hx Sleep Apnea No 12/11/24 15:59 CPAP No 12/11/24 15:59 BIPAP No 12/11/24 15:59 Do you snore loudly (louder No 12/11/24 15:59 than talking or can be heard Do you often feel tired/ No 12/11/24 15:59 fatigued/ sleepy during daytime? Has anyone observed you stop No 12/11/24 15:59 breathing during sleep? STOP Results Negative 12/11/24 15:59 QUESTION #5 FULL TEXT : Do you snore loudly (louder than talking or can be heard through closed doors)? 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 Specify any problems Hx of Preganancy in last 3 No 12/11/24 15:59 Months Nurse Filling Out Transfusion DSCHRIBER 12/11/24 15:59 & Questions: Date: 12/11/24 12/11/24 15:59 Time: 15:59 12/11/24 15:59 Patient unable to answer at this time (ie. confused, unrespo /Reproduction History /Reproductive History - quitline counselor: /Reproductive Hx- quitline counselor Hx Now No 12/11/24 15:59 Gestational Age (in weeks): EDC: Hx Hx Para Hx Section SAB No 12/11/24 15:59 Active Medications Active Medications: Current Medications Generic Name Dose Route Start Last Admin Trade Name Freq PRN Reason Stop Dose Admin Lactated Ringer's 1,000 mls @ 15 mls/hr 12/15/24 08:00 12/15/24 08:10 IV 15 mls/hr .Q48H SONG Administration PFSH Medical History (Updated 12/11/24 @ 16:02 by Bailey Zaragoza) Wears contact lenses Wears glasses Non-smoker History of ganglion cyst Colon cancer screening Health care maintenance Bronchitis Cough URI (upper respiratory infection) Left elbow pain Morbid obesity Acute maxillary sinusitis, unspecified GERD (gastroesophageal reflux disease) Vertigo Flu vaccine need Perimenopausal Diabetes Home Medications ?Medication ?Instructions ?Recorded ?Last Taken ?Type fvuvkbof-fdccuagx-mzowzuiv 3 1 ea PO QODAY supplement 08/09/20 12/08/24 History mg-lutein 3 mg-herbal no219 200 mg tablet blood-glucose meter (True Metrix #1 ea 08/23/20 Unknown Rx Glucose Meter) blood sugar diagnostic (True #200 ea 10/17/22 Unknown Rx Metrix Glucose Test Strip) lancets 28 gauge (FreeStyle #200 ea 12/14/22 Unknown Rx Lancets) lisinopril 40 mg tablet 40 mg PO DAILY #90 tabs 03/24/24 12/14/24 Rx pantoprazole 40 mg tablet,delayed 40 mg PO DAILY #90 tabs 06/10/24 12/14/24 Rx release metformin 750 mg tablet,extended See Rx Instructions .Route 07/21/24 12/13/24 Rx release 24 hr .COMPLEX #180 tabs multivitamin-folic acid 400 1 tab PO DAILY 10/13/24 12/08/24 History mcg-biotin 2,000 mcg tablet (Lwmw-Slpv-Jnaeu (fegzhbap-tfsvg-xorjol)) tirzepatide 12.5 mg/0.5 mL 12.5 mg (0.5 mL) subcut QWEEK 3 10/21/24 12/06/24 Rx subcutaneous pen injector months #6.5 mL dapagliflozin propanediol 5 mg 5 mg PO QAM #30 tabs 11/03/24 12/09/24 Rx tablet (Farxiga) hydrochlorothiazide 12.5 mg tablet 12.5 mg PO QAM #90 tabs 11/06/24 12/14/24 Rx Allergy/AdvReac Type Severity Reaction Status Date / Time exenatide (From Bydureon) Allergy Unknown Site sore, Verified 12/15/24 08:01 bump under skin doxycycline AdvReac Hives Verified 12/15/24 08:01 erythromycin base AdvReac Abd Verified 12/15/24 08:01 (Erythromycin Base) cramps/diarrhea Family History Mother Diabetes Heart disease Hypertension Asthma Father Hypertension Sister Hypertension Cancer endometrial Surgical History (Updated 12/11/24 @ 16:02 by Bailey Zaragoza) Hx laparoscopic cholecystectomy S/P left knee arthroscopy history of uterine ablation History of 2 sections History of anterior cruciate ligament surgery History of tonsillectomy History of hernia repair Social History household members: spouse and family current occupational status: unemployed 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
--- NOTE | 2024-12-15 08:26 | H&P.OPEN ---
[facility] - General General Date of Service: 12/15/24 HPI Narrative DELFINA BARBOSA, is a 48 F who presents for screening colonoscopy. Patient never had previous colonoscopy. Patient denies any family history of colon cancer. Patient denies any chronic abdominal pain/nausea/vomiting/reflux. Patient has bowel movements daily denies any blood. [facility] Medical History (Updated 12/11/24 @ 16:02 by Bailey Zaragoza) Wears contact lenses Wears glasses Non-smoker History of ganglion cyst Colon cancer screening Health care maintenance Bronchitis Cough URI (upper respiratory infection) Left elbow pain Morbid obesity Acute maxillary sinusitis, unspecified GERD (gastroesophageal reflux disease) Vertigo Flu vaccine need Perimenopausal Diabetes Home Medications ?Medication ?Instructions ?Recorded ?Last Taken ?Type sfhruyhd-kyrtqvpx-eixqocwb 3 1 ea PO QODAY supplement 08/09/20 12/08/24 History mg-lutein 3 mg-herbal no219 200 mg tablet blood-glucose meter (True Metrix #1 ea 08/23/20 Unknown Rx Glucose Meter) blood sugar diagnostic (True #200 ea 10/17/22 Unknown Rx Metrix Glucose Test Strip) lancets 28 gauge (FreeStyle #200 ea 12/14/22 Unknown Rx Lancets) lisinopril 40 mg tablet 40 mg PO DAILY #90 tabs 03/24/24 12/14/24 Rx pantoprazole 40 mg tablet,delayed 40 mg PO DAILY #90 tabs 06/10/24 12/14/24 Rx release metformin 750 mg tablet,extended See Rx Instructions .Route 07/21/24 12/13/24 Rx release 24 hr .COMPLEX #180 tabs multivitamin-folic acid 400 1 tab PO DAILY 10/13/24 12/08/24 History mcg-biotin 2,000 mcg tablet (Kehz-Zobv-Tmxbi (mbgkkzof-oodqd-dfppic)) tirzepatide 12.5 mg/0.5 mL 12.5 mg (0.5 mL) subcut QWEEK 3 10/21/24 12/06/24 Rx subcutaneous pen injector months #6.5 mL dapagliflozin propanediol 5 mg 5 mg PO QAM #30 tabs 11/03/24 12/09/24 Rx tablet (Farxiga) hydrochlorothiazide 12.5 mg tablet 12.5 mg PO QAM #90 tabs 11/06/24 12/14/24 Rx Allergy/AdvReac Type Severity Reaction Status Date / Time exenatide (From ByAd Summosreon) Allergy Unknown Site sore, Verified 12/15/24 08:01 bump under skin doxycycline AdvReac Hives Verified 12/15/24 08:01 erythromycin base AdvReac Abd Verified 12/15/24 08:01 (Erythromycin Base) cramps/diarrhea Family History Mother Diabetes Heart disease Hypertension Asthma Father Hypertension Sister Hypertension Cancer endometrial Surgical History (Updated 12/11/24 @ 16:02 by Bailey Zaragoza) Hx laparoscopic cholecystectomy S/P left knee arthroscopy history of uterine ablation History of 2 sections History of anterior cruciate ligament surgery History of tonsillectomy History of hernia repair Social History household members: spouse and family current occupational status: unemployed current occupation: [email or web address] Smoking Status: Never smoker alcohol intake: never substance use type: does not use what type of physical activity do you participate in: none Past Medical/Surgical History Planned Operation Planned Operative Procedure(s): CSCOPE OA S.O.S: No Previous Hospitalizations/Surgeries HX Hospitalizations: No HX of Surgeries: UNA INGUINAL HERNIA TONSILS R KNEE ACL X2 UMBILICAL HERNIA,BILAT SALPINGECTOMY ABLATION 02/2017 Any Problems With Anesthesia: No You/Your Family Experience Fever (Hyperthermia) With Anes: No Cholinesterase deficiency: No Cardiovascular Hx Chest Pain within Last 2 months: No Hx of Irregular Heartbeat and/or Afib: No Hx Heart Attack: No Hx Congestive Heart Failure: No Hx Rheumatic Fever: No Hx Hypertension: Yes (CONTROLLED ON MED) Hx Internal Defibrillator: No Hx Pacemaker: No Hx Cardiac Catheterization: No Hx Cardiac Surgery/Stents/Etc.: No Hx Stress Test: No Hx Pain in Legs when Walking/Leg Cramps: No Respiratory Chronic Cough: No HX of Shortness of Breath: No (ABLE TO WALK 2 FLIGHTS OF STAIRS WITHOUT SOB) Hoarseness: No Hx Chronic Obstructive Pulmonary Disease (COPD): No Hx Asthma: No Hx Emphysema: No Hx Sleep Apnea: No CPAP: No BIPAP: No Hx Respiratory Tract Infection/Cold (presently): No (.) Do You Snore Loudly (louder than talking or can be heard): No Do You Often Feel Tired/ Fatigued/ Sleepy Dring Daytime?: No Has Anyone Observed You Stop Breathing During Sleep?: No Result (for STOP score): Negative Hx Smoking: No Smoking Status: Never smoker Gastrointestinal Hx Gastrointestinal Disorders: No Hx Gastrointestinal Bleed: No Hx Ulcer: No Hx Hiatal Hernia: No Difficulty Chewing/Swallowing: No Special diet followed at home: No Hx Unplanned Weight Loss of 20#: No HX Unplanned Weight Gain of 20#: No Neurological Hx Seizures: No HX Syncope/Blackout Spells/Unconsciousness: No Hx Transient Ischemic Attacks (TIA): No Hx Multiple Sclerosis: No Hx Parkinson's Disease: No Hx Head/Neck Injury: No Hx Headaches: No Hx Back Injury/Pain: No Recent Onset of Speech Difficulty: No Restless Legs: No Does patient have nerve stimulator: No Blood Disorder Hx Leukemia: No Bleeding Tendencies: No Hx Deep Vein Thrombosis: No Hx High Cholesterol: No Blood Transmitted Disease: No Hx Hepatitis: No Hx Cirrhosis: No Hx Anemia: No Hx Blood Disorders: No Reproduction : No Is Patient Lactating: No Hx Hysterectomy: No Hx Tubal Ligation: Yes Are You Post Menopause: No Genitourinary Hx Renal Disease: No Hx Dialysis: No Musculoskeletal Hx Arthritis: No Hx Rheumatoid Arthritis: No Hx Gout: No Recent Onset of an Orthopedic Problem: No Endocrine Hx Diabetes: Yes (diet/exercise) Insulin: No Thyroid Disease: No Hx Steroid Therapy: Yes (INJECTION KNEE 10/2016) Psycho/Social Hx Substance Use: No Hx Alcohol Use: Yes (rarely) Hx Anxiety: No Hx Depression: No Mental Illness: No Hx Dementia: No Miscellaneous Hx Cancer: No Recent Exposure to Contagious Disease: No Hx of C-Diff: No Any Loose Teeth: No Allergies exenatide (From Bydureon) Allergy (Unknown, Verified 12/15/24 08:01) Site sore, bump under skin doxycycline Adverse Reaction (Verified 12/15/24 08:01) Hives erythromycin base (Erythromycin Base) Adverse Reaction (Verified 12/15/24 08:01) Abd cramps/diarrhea Discharge Is Pt Admitted From a Custodial, or a Skilled Nursing: No After D/C, Where Do you Plan to Go: Return Home Vital Signs Vital Signs Vital Signs: 12/15/24 08:02 12/15/24 08:02 12/15/24 08:16 Temperature 97.0 F L 97.0 F L Temperature Source Temporal Pulse Rate 91 91 Respiratory Rate 20 H 20 H Respiratory Pattern Normal Blood Pressure 143/98 H 143/98 H Blood Pressure Mean 113 Blood Pressure Source Monitor Blood Pressure Position Semi-Fowlers Blood Pressure Location Right Arm Pulse Ox 98 98 Oxygen Delivery Method Room Air Room Air Weight Weight: 268 lb 15.423 oz Body Mass Index (BMI) 37.5 Physical Exam Const alert, oriented x3 and no apparent distress HEENT normocephalic and head/scalp atraumatic Resp normal respiratory effort Cardio regular rate GI soft to palpation and non-tender; Negative for non-distended Palpation: Negative for guarding Extremity no clubbing, cyanosis or edema Skin no rashes or lesions noted Neuro CN's II-XII intact bilaterally Psych mental status grossly normal Assessment & Plan Assessment/Plan (1) Colon cancer screening: Surgery Risks - Colonoscopy I discussed with the patient the risks of the procedure: Yes Risks Include but are not Limited To: Risks include but are not limited to: Bleeding, perforation requiring further surgery, inability to complete colonoscopy requiring barium enema.
--- NOTE | 2024-12-15 09:30 | PCM.POST.ANE ---
Anesthesia: Postop Eval I Current Vital Signs Temperature: 97.1 F Pulse Rate: 81 Blood Pressure: 110/81 Respiratory Rate: 16 Pulse Ox: 93 Oxygen Delivery Method: Room Air Assessment Airway patent: Yes Spontaneous unlabored respirations: Yes Mental status: Asleep nausea: No Vomiting: No Anesthesia Complication: No Fluid Hydration Crystalloid volume administer (ml): 500 Total IV fluid infused: 500 Progress Note Anesthesia document: Postop Eval 1 completed: Yes
--- NOTE | 2024-12-15 09:35 | OP.CCLET_ITS ---
12/15/2024 Palma Betancourt MD [address] [place] [address] [place] [address] Re : Colonoscopy procedure for Piakofi Armando Dear Dr. Betancourt This procedure was performed on Sunday, December 15, 2024. My impressions and recommendations are as follows: Impressions : - Hemorrhoids found on perianal exam. - Non-bleeding internal hemorrhoids. - The entire examined colon is normal. - No specimens collected. Recommendations : - Discharge patient to home. - Resume previous diet. - Continue present medications. - Repeat colonoscopy in 10 years for screening purposes. My findings are described in the full procedure note, which is enclosed. If I can be of further assistance, please feel free to contact me at Doctor phone number(s): , Work: . Sincerely, MD Ximena Aldridge MD 12/15/2024 9:35:19 AM This report has been signed electronically.
--- NOTE | 2024-12-15 09:35 | OP.COLON_ITS ---
Patient Name: Pia Armando Procedure Date: 12/15/2024 8:54 AM Date of : 1975 Age: 48 Procedure: Colonoscopy Indications: Screening for colorectal malignant neoplasm Providers: Ximena Linn MD Referring MD: Palma Betancourt MD Medicines: Monitored Anesthesia Care Patient Profile: This is a 48 year old female. Last Colonoscopy: none. The patient's first colonoscopy is today. Complications: No immediate complications. Procedure: Pre-Anesthesia Assessment: - Prior to the procedure, a History and Physical was performed, and patient medications and allergies were reviewed. The patient's tolerance of previous anesthesia was also reviewed. The risks and benefits of the procedure and the sedation options and risks were discussed with the patient. All questions were answered, and informed consent was obtained. Prior Anticoagulants: The patient has taken no anticoagulant or antiplatelet agents. ASA Grade Assessment: Per anesthesia. After reviewing the risks and benefits, the patient was deemed in satisfactory condition to undergo the procedure. After I obtained informed consent, the scope was passed under direct vision. Throughout the procedure, the patient's blood pressure, pulse, and oxygen saturations were monitored continuously. The colonoscope was introduced through the anus and advanced to the cecum, identified by appendiceal orifice and ileocecal valve. The colonoscopy was performed without difficulty. The patient tolerated the procedure well. The quality of the bowel preparation was good. Scope In: 9:06:39 AM Scope Withdrawal Time 0 hours 10 minutes 57 seconds Scope Out: 9:22:41 AM Total Procedure Duration Time 0 hours 16 minutes 2 seconds Findings: Hemorrhoids were found on perianal exam. Non-bleeding internal hemorrhoids were found. The hemorrhoids were Grade I (internal hemorrhoids that do not prolapse). The entire examined colon appeared normal. Impression: - Hemorrhoids found on perianal exam. - Non-bleeding internal hemorrhoids. - The entire examined colon is normal. - No specimens collected. Recommendation: - Discharge patient to home. - Resume previous diet. - Continue present medications. - Repeat colonoscopy in 10 years for screening purposes. Procedure Code(s): --- Professional --- G0121, PT, Colorectal cancer screening; colonoscopy on individual not meeting criteria for high risk Diagnosis Code(s): --- Professional --- Z12.11, Encounter for screening for malignant neoplasm of colon K64.0, First degree hemorrhoids CPT copyright 2021 [employer]. All rights reserved. The codes documented in this report are preliminary and upon birthing nurse review may be revised to meet current compliance requirements. MD Ximena Aldridge MD 12/15/2024 9:35:19 AM This report has been signed electronically. Number of Addenda: 0 Note Initiated On: 12/15/2024 8:54 AM
--- NOTE | 2024-12-15 13:44 | PCM.POSTANE2 ---
Anesthesia Postop Eval I Sum Postop Eval Completion status Anesthesia document: Postop Eval 1 completed: Yes Anesthesia Postop Eval I Summary Anesthesia Postop Eval I Summary: Anesthesia Postop Eval I: Assessment Summary Airway patent Yes 12/15/24 09:31 [email or web address] Spontaneous unlabored Yes 12/15/24 09:31 [email or web address] respirations Mental status Asleep 12/15/24 09:31 [email or web address] nausea No 12/15/24 09:31 [email or web address] Vomiting No 12/15/24 09:31 [email or web address] Anesthesia Postop Eval I: Fluid Summary Crystalloid volume administer 500 12/15/24 09:31 [email or web address] (ml) Colloids volume administered ( ml) Blood Product volume administered (ml) Total IV fluid infused 500 12/15/24 09:31 [email or web address] Anesthesia Postop Eval I: Summary Notes Anesthesia Complication No 12/15/24 09:31 [email or web address] Anesthesia Complication Comment: Post-operative progress note Anesthesia: Postop Eval II Evaluation Mental status: Awake and Calm Pain Level: 0 nausea: No Vomiting: No Complications Anesthesia Complication: No
== END 2024-12-15 10:05 | disposition home or self-care (01) ==
LOC: EN 07:38 → AC 07:39
PROVIDERS: PCP Internal Medicine; Referring Provider Internal Medicine; Visit Provider Surgery
PROC: 0DJD8ZZ Inspection of Lower Intestinal Tract, Via Natural or Artificial Opening Endoscopic (ICD-10-PCS; CPT 45378; principal; 2024-12-15 08:55)
DX: Z12.11 Encounter for screening for malignant neoplasm of colon (principal); E11.9 Type 2 diabetes mellitus without complications; K21.9 Gastro-esophageal reflux disease without esophagitis; Z79.85 Long-term (current) use of injectable non-insulin antidiabetic drugs; K64.0 First degree hemorrhoids; Z79.84 Long term (current) use of oral hypoglycemic drugs; Z79.899 Other long term (current) drug therapy; I10 Essential (primary) hypertension; Z90.49 Acquired absence of other specified parts of digestive tract; K64.4 Residual hemorrhoidal skin tags
CPT/HCPCS: 45378; 82962; J2405

== ENCOUNTER → 2025-01-29 | Outpatient (CLI) | payer BC, MEDICAID, SELFPAY ==
[2025-01-29 15:42] LABS: AST(SGOT) 35 U/L (<=31); Alanine Aminotransfer ALT/SGPT 48 U/L (<=34); Albumin, Serum 4.4 g/dL (3.5-5.0); Alkaline Phosphatase 84 U/L (35-104); Anion Gap 13 (5-15); BUN 8 mg/dL (4-19); BUN/Creat Ratio 12.2 RATIO (10-20); Calcium,Total 9.7 mg/dL (7.6-11.0); Carbon Dioxide 25.7 mmol/L (21.0-32.0); Chloride 103 mmol/L (98-108); Cholesterol 197 mg/dL (<=200); Globulin 2.9 g/dL (2.2-4.2); Glucose 131 mg/dL (70-99); Low Density Lipoprotein Calc. 118 mg/dL; Potassium 4.0 mmol/L (3.3-5.1); Triglycerides 142 mg/dL; Very Low Density Lipoprotein 28 mg/dL (5-40); cholesterol:hdl ratio screen 3.92
== END | disposition home or self-care (01) ==
LOC: BIMLAB 12:14
PROVIDERS: PCP Internal Medicine; Referring Provider Internal Medicine; Visit Provider Internal Medicine
DX: E11.69 Type 2 diabetes mellitus with other specified complication (principal)
CPT/HCPCS: 36415; 80053; 80061; 83036